=== PATIENT | female | born 1975 | race Two or more races ===

== ENCOUNTER 2024-10-21 14:01 | Outpatient (AMB) | payer OTHER, SELFPAY ==
--- NOTE | 2024-10-21 14:13 | MHC.PC.OV ---
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 Intake Note: patient is scheduled for a new patient visit to establish care Territory Account Manager Required: No Is last menstrual period known: Yes Last menstrual period: 09/15/24 Post menopausal: No Patient : No Allergies No Known Allergies Allergy (Verified 10/21/24 14:14) Medication List - Last Reconciled 10/21/24 by Josias Singleton MD cetirizine (Zyrtec) 10 mg PO DAILY PRN levothyroxine 10 mcg PO DAILY Tobacco use date assessed: 10/21/24 Dental Screening Dental Screen Date: 10/21/24 Did you have a dental visit in the last 12 months?: Yes Did you have a dental problem in the last 6 months where you did not have access to dental care?: No Was dental information given to patient?: No HPI 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 ?? Prior PCP:? [address] in [place] Last office visit/CPE:? 2-3 yrs Acute issue(s):? Needs thyroid hormone tabs ?? PMHx:? Hypothyroidism s/p ablation. GERD, SurgHx:?Hysterectomy - still has Ovaries. FHx:? Mom: Breast CA. Dad: CAD, [place]. SocHx:? Nonsmoker. EtOH 1-2 dr a month. No drugs PFSH Medical History (Updated 10/21/24 @ 14:45 by Oliver Whatley) Encounter for colonoscopy following colon polyp removal Peptic ulcer Thyroid disease Sinusitis Family History (Updated 10/21/24 @ 14:23 [facility] Mother High blood pressure High cholesterol Breast cancer Social History Patient : No Female Reproductive History Menstrual Date of last menstrual period: 09/15/24 Questionnaire PHQ-9 Over the last 2 weeks, how often have you been bothered by any of the following problems? 1. Little interest or pleasure in doing things: not at all 2. Feeling down, depressed, or hopeless: not at all 3. Trouble falling or staying asleep, or sleeping too much: several days 4. Feeling tired or having little energy: several days 5. Poor appetite or overeating: several days 6. Feeling bad about yourself - or that you are a failure or have let yourself or your family down: not at all 7. Trouble concentrating on things, such as reading the newspaper or watching television: several days 8. Moving or speaking so slowly that other people could have noticed. Or the opposite - being so fidgety or restless that you have been moving around a lot more than usual: several days 9. Thoughts that you would be better off or of hurting yourself in some way: not at all Total score: 5 Depression Screening Interpretation: Negative Depression Screening Done: Yes 38704 - PHQ-9 Billing: Yes Source: Developed by Drs. Yasir Edwards, Jammie Gao, Zay Chong and colleagues, with an educational brandon from [employer]. Thrive Questionnaire Date Thrive assessed: 10/21/24 I am a: Patient What is your living situation today?: I have a steady place to live Within the past 12 months, did the food you bought not last and you didn't have the money to get more?: Sometimes True Within the past 12 months, did you worry whether your food would run out before you got money to buy more?: Sometimes True Do you have trouble paying for medicines?: No Do you have trouble getting transportation to medical appointments?: No Do you have trouble paying your heating and electricity bill?: No Do you have trouble taking care of your child, family member or friend?: No Do you have trouble with day-to-day activities such as bathing, preparing meals, shopping, managing finances, etc.?: No Are you currently unemployed and looking for a job?: No Are you interested in more education?: No Please select the resources that you would like help with: Food Currently or been in a relationship where the following occur: No concerns reported THRIVE Score: 2 AUDIT C Alcohol Use Questionnaire (AUDIT-C) 1. How often do you have a drink containing alcohol?: Monthly or less 2. How many drinks containing alcohol do you have on a typical day when you are drinking?: 1 or 2 3. How often do you have six or more drinks on one occasion?: Less than monthly Total Score: 2 JANETH-7 AMB Questionnaire JANETH-7 Date JANETH - 7 assessed: 10/21/24 Feeling nervous, anxious, or on edge: 1 = Several days Not being able to stop or control worryin = Not at all Worrying too much about different things: 1 = Several days Trouble relaxin = Several days Being so restless that it is hard to sit still: 1 = Several days Becoming easily annoyed or irritable: 1 = Several days Feeling afraid as if something awful might happen: 0 = Not at all Total JANETH-7 score (0-4 normal; 5-9 mild; 10-14 moderate; 15-21 severe): 5 Source: Developed by Drs. Yasir Edwards, Jammie Gao, Zay Chong and colleagues, with an educational brandon from [employer]. JANETH-7 Assessment Billing JANETH-7 Assessment Tool: JANETH-7 Assessment 11228 Review of Systems Const Denies chills, Denies fatigue, Denies fever(s), Denies headache(s) and Denies weakness ENT Denies dizziness and Denies headache(s) Card Denies chest pain, Denies lightheadedness, Denies dyspnea and Denies other (Palpitations) Resp Denies cough, Denies dyspnea, Denies wheezing and Denies other ( shortness of breath) Musc Denies numbness and Denies tingling Neuro Denies dizziness, Denies headache(s), Denies numbness, Denies tingling, Denies paresthesias and Denies weakness Psych Denies anxiety and Denies depression Endo Denies fatigue Aller/Immun Denies wheezing Physical exam (Primary Care) Tobacco/Smoking Status: Tobacco use Status Tobacco use date assessed 10/21/24 10/21/24 14:18 PHQ-9: PHQ-9 Score PHQ-9: Total score 5 10/21/24 14:18 Depression Screening Interpretation: Negative Currently or been in a relationship where the following occur: No concerns reported Const General: no acute distress and well developed Nutritional Appearance: well nourished Orientation/consciousness: patient oriented x3 HENMT Head: Yes normocephalic and Yes atraumatic Eyes General: appearance normal, both eyes and all related structures Pupils: Equal, round and reactive pupils present EOM: EOMs intact bilaterally Resp Effort & Inspection: normal respiratory effort Auscultation: clear to auscultation bilaterally Cardio Rate: regular rate Rhythm: regular rhythm Heart sounds: S1 normal heart sound present, S2 normal heart sound present, no gallops, no murmurs and no rubs Neuro General: patient oriented x3 and gait normal Cranial nerves: Yes Equal, round and reactive pupils present Psych Affect: normal affect Coding Level of Care Code New Pt Level 3 (88075) Diagnoses Hypothyroidism E03.9 Screening for tuberculosis Z11.1 Abdominal pain R10.9 GERD (gastroesophageal reflux disease) K21.9 Screening for colon cancer Z12.11 Breast cancer screening by mammogram Z12.31 Screening for cervical cancer Z12.4 Laboratory exam ordered as part of routine general medical examination Z00.00 Additional Codes PHQ-9 - 61847 - PHQ-9 Billing: Yes ([id number]) JANETH-7 Assessment Billing - JANETH-7 Assessment Tool: JANETH-7 Assessment 58759 ([id number]) Assessment & Plan Assessment & Plan (1) Hypothyroidism: Code(s): E03.9 - Hypothyroidism, unspecified Category: Medical Plan: Check?thyroid?hormone?levels Continue?levothyroxine?as?prescribed Will?call?patient?if?adjustments?needed. (2) Screening for tuberculosis: Code(s): Z11.1 - Encounter for screening for respiratory tuberculosis Category: Medical Plan: Patient?is?a?home?health?aide?and?needs?screening?for?tuberculosis Ordered?T?spot (3) Abdominal pain: Code(s): R10.9 - Unspecified abdominal pain Category: Medical Plan: Mild?abdominal?discomfort?and?GERD?intermittently She?uses?omeprazole?OTC Referred?to?GI?for?abdominal?discomfort,?GERD?and?screening?for?colon?cancer?as?she?is?overdue. (4) GERD (gastroesophageal reflux disease): Code(s): K21.9 - Gastro-esophageal reflux disease without esophagitis Category: Medical Plan: As?above (5) Screening for colon cancer: Code(s): Z12.11 - Encounter for screening for malignant neoplasm of colon Category: Medical Plan: Patient?has?never?had?a?colonoscopy Referred?to?Gastroenterology (6) Breast cancer screening by mammogram: Code(s): Z12.31 - Encounter for screening mammogram for malignant neoplasm of breast Category: Medical Plan: Patient?says?her?last?mammogram?was?2?years?ago Due?for?mammogram Ordered (7) Screening for cervical cancer: Code(s): Z12.4 - Encounter for screening for malignant neoplasm of cervix Category: Medical Plan: Followed?by [facility]/worsened?Women's?home health caregiver She?says?her?last?Pap?smear?was?about?2?years?ago Follow-up?with?home health caregiver?as?recommended (8) Laboratory exam ordered as part of routine general medical examination: Code(s): Z00.00 - Encounter for general adult medical examination without abnormal findings Category: Medical Plan Check?labs Orders: Orders Lipid Panel Today Z00.00 - Encounter for general adult medical examination without abnormal findings Microalbumin, Random (w Creat) Today I10 - Essential (primary) hypertension Free T4 (Free Thyroxine) Today E03.9 - Hypothyroidism, unspecified Thyroid Stimulating Hormone Today E03.9 - Hypothyroidism, unspecified Triiodothyronine T3 Total Today E03.9 - Hypothyroidism, unspecified T Spot TB Today Z11.1 - Encounter for screening for respiratory tuberculosis MM tomosynthesis screening BI Today Z12.31 - Encounter for screening mammogram for malignant neoplasm of breast Comprehensive [place]. Panel Fast Today Z00.00 - Encounter for general adult medical examination without abnormal findings Complete Blood Count Auto Diff Today Z00.00 - Encounter for general adult medical examination without abnormal findings UA and rflx microscopic Today Z00.00 - Encounter for general adult medical examination without abnormal findings Referrals Gastroenterology Referral K21.9 - Gastro-esophageal reflux disease without esophagitis, R10.9 - Unspecified abdominal pain, Z12.11 - Encounter for screening for malignant neoplasm of colon
[2024-10-21 14:24] VITALS: BP 110/70; PULSE 67; RESP 12; TEMP 37.2; O2SAT 97; BMI 26.9
== END 2024-10-21 14:47 | disposition home or self-care (01) ==
LOC: HO.HMCFM 14:02
PROVIDERS: PCP Family Medicine; Visit Provider Family Medicine
DX: E03.9 Hypothyroidism, unspecified (principal); Z11.1 Encounter for screening for respiratory tuberculosis; R10.9 Unspecified abdominal pain; K21.9 Gastro-esophageal reflux disease without esophagitis; Z12.11 Encounter for screening for malignant neoplasm of colon; Z12.31 Encounter for screening mammogram for malignant neoplasm of breast; Z12.4 Encounter for screening for malignant neoplasm of cervix; Z00.00 Encounter for general adult medical examination without abnormal findings

== ENCOUNTER → 2024-10-21 14:01 | Outpatient (BNVA) | payer OTHER, SELFPAY | PROVIDERS: PCP Family Medicine; Visit Provider Family Medicine | DX: Z00.00 Encounter for general adult medical examination without abnormal findings (principal); E03.9 Hypothyroidism, unspecified; R10.9 Unspecified abdominal pain; K21.9 Gastro-esophageal reflux disease without esophagitis | CPT/HCPCS: 96127; 99202 ==

== ENCOUNTER 2024-10-22 08:13 | Outpatient (REF) | payer SELFPAY ==
[2024-10-22 11:17] LABS: MANUAL DIFF FLAG NO
[2024-10-22 11:32] LABS: Basophils Percent Auto 0.7 % (0-2); Eosinophils Absolute Auto 0.2 X10*3/uL (0.0-0.4); Eosinophils Percent Auto 3.5 % (0-4); Hematocrit 33.2 % (37.0-47.0); Hemoglobin 10.4 g/dl (12.0-16.0); Imm Gran Abs Auto 0.02 X10*3/uL (0.00-0.03); Imm Gran Pct Auto 0.3 % (0.0-0.4); Lymphocytes Absolute Auto 1.5 X10*3/uL (1.2-4.9); Lymphocytes Percent Auto 25.3 % (20-40); Mean Corpuscular HGB Conc 31.3 g/dl (31.0-35.0); Mean Corpuscular Hemoglobin 25.7 pg (27.0-33.0); Mean Platelet Volume 9.7 fL (9.4-12.3); Monocytes Absolute Auto 0.4 X10*3/uL (0.1-1.2); Monocytes Percent Auto 6.4 % (2-11); Neutrophils Absolute Auto 3.7 x10*3/uL (2.0-8.3); Neutrophils Percent Auto 63.8 % (45-73); Platelet Count 281 X10*3/uL (160-400); Red Blood Count 4.05 X10*6/uL (4.20-5.50); White Blood Count 5.8 X10*3/uL (4.8-10.8)
[2024-10-22 12:18] LABS: Alanine Aminotransferase 17 U/L (0-31); Albumin Level 4.1 g/dL (3.5-5.0); Alkaline Phosphatase 51 U/L (39-117); Anion Gap 9 (12-20); Aspartate Amino Transferase 24 U/L (5-31); Bilirubin Total 0.3 mg/dL (0.0-1.0); Blood Urea Nitrogen 13 mg/dL (9-16); Carbon Dioxide 28 mmol/L (22-29); Chloride 105 mmol/L (96-108); Cholesterol 214 mg/dL (<200); Estimated Glomerular Filt Rate > 60; Glucose Fasting 84 mg/dL (60-99); HDL Cholesterol 66 mg/dL (>40); LDL Cholesterol Calculated 136 mg/dL (<100); Sodium 138 mmol/L (135-145); Total Protein 7.5 g/dL (6.5-8.0); Triglycerides 63 mg/dL (<150)
[2024-10-22 12:20] LABS: Free T4 (Free Thyroxine) 0.47 ng/dL (0.71-1.85); Thyroid Stimulating Hormone 19.54 uIU/mL (0.32-4.0)
[2024-10-22 14:13] LABS: Appearance Urine Clear; Color Urine Yellow; Glucose Urine UA Negative (Negative); Leukocyte Esterase Urine Negative (Negative); Nitrite Urine Negative (Negative); PH 6.5 (5.0-9.0); Urine Blood Negative (Negative); Urine Ketones Negative (Negative); Urine Protein Negative (Neg-Trace)
[2024-10-22 15:02] LABS: Creatinine Urine 184.93 mg/dL; Microalbum/Creatinine Ratio Ur 5.9 ug/mg cr (<30)
[2024-10-23 05:59] LABS: Triiodothyronine T3 Total 50 ng/dL (76-181)
[2024-10-25 19:19] LABS: TS Negative Control Passed; TS Panel A 0; TS Panel B 0; TS Positive Control Passed; TSpotTB Negative (Negative)
== END 2024-10-22 08:14 | disposition home or self-care (01) ==
LOC: HO.WFDLDS 08:13
PROVIDERS: Visit Provider Family Medicine
DX: Z00.00 Encounter for general adult medical examination without abnormal findings (principal); Z11.1 Encounter for screening for respiratory tuberculosis; E03.9 Hypothyroidism, unspecified; I10 Essential (primary) hypertension
CPT/HCPCS: 36415; 80053; 80061; 81003; 82043; 82570; 84439; 84443; 84480; 85025; 86481

== ENCOUNTER 2024-11-23 07:43 | Outpatient (REF) | payer SELFPAY ==
[2024-11-23 12:15] LABS: Free T4 (Free Thyroxine) 0.87 ng/dL (0.71-1.85); Thyroid Stimulating Hormone 18.41 uIU/mL (0.32-4.0)
[2024-11-24 09:54] LABS: Triiodothyronine T3 Total 63 ng/dL (76-181)
== END 2024-11-23 07:44 | disposition home or self-care (01) ==
LOC: HO.WFDLDS 07:43
PROVIDERS: Visit Provider Family Medicine
DX: E03.9 Hypothyroidism, unspecified (principal)
CPT/HCPCS: 36415; 84439; 84443; 84480

== ENCOUNTER 2024-11-29 09:43 | Outpatient (AMB) | payer OTHER, SELFPAY ==
[2024-11-29 10:03] VITALS: BP 143/70; PULSE 64; RESP 16; TEMP 36.6; O2SAT 100; BMI 27.3
--- NOTE | 2024-11-29 10:03 | A.OFFPC_ITS ---
Vital Signs 11/29/24 10:03 11/29/24 10:07 Height 5 ft 2 in Weight 149 lb 6 oz BMI 27.3 BP 143/70 H 140/80 H Blood Pressure Location Lt brachial Rt brachial Position Sitting Sitting Respiration 16 Pulse 64 Pulse Source Pulse Oximeter Temp 97.8 F Temp Source Oral Pulse Oximetry (%) 100 Oxygen Delivery Method Room Air Intake Visit Reasons: f/u labs Allergies No Known Allergies Allergy (Verified 10/21/24 14:14) Tobacco use date assessed: 10/21/24 Dental Screening Dental Screen Date: 10/21/24 HPI f/u labs HPI Details 49 y/o female presents to f/u labs, hypo thyroidism. Labs drawn 10/22/24. Reviewed labs with pt. Anemia. Denies any bleeding. She notes she still has her periods. Triglycerides 63. TC 214. LDL 136. HDL 66. TSH 19.54. Repeat check 11/23/24 18.41 uIU/mL. Pt reports abd. discomfort which improves with bowel movement. 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 Current occupational exposures/hazards: Yes Cognitive needs: No Hearing needs: No Vision needs: No Questionnaire Thrive Questionnaire Date Thrive assessed: 10/21/24 I am a: Patient What is your living situation today?: I have a steady place to live Within the past 12 months, did the food you bought not last and you didn't have the money to get more?: Sometimes True Within the past 12 months, did you worry whether your food would run out before you got money to buy more?: Sometimes True Do you have trouble paying for medicines?: No Do you have trouble getting transportation to medical appointments?: No Do you have trouble paying your heating and electricity bill?: No Do you have trouble taking care of your child, family member or friend?: No Do you have trouble with day-to-day activities such as bathing, preparing meals, shopping, managing finances, etc.?: No Are you currently unemployed and looking for a job?: No Are you interested in more education?: No Please select the resources that you would like help with: Food Currently or been in a relationship where the following occur: No concerns reported THRIVE Score: 2 JANETH-7 AMB Questionnaire JANETH-7 Date JANETH - 7 assessed: 10/21/24 Source: Developed by Drs. Yasir Edwards, Jammie Gao, Zay Chong and colleagues, with an educational brandon from [employer]. Review of Systems Const Denies chills, Denies fatigue, Denies fever(s), Denies headache(s) and Denies weakness ENT Denies dizziness and Denies headache(s) Card Denies dyspnea Resp Denies cough, Denies dyspnea, Denies wheezing and Denies other (shortness of breath) Musc Denies numbness and Denies tingling Neuro Denies dizziness, Denies headache(s), Denies numbness, Denies tingling and Denies weakness Psych Denies anxiety and Denies depression Endo Denies fatigue Aller/Immun Denies wheezing Physical exam (Primary Care) Vital Signs: Last Vital Signs Temp 97.8 F 11/29/24 10:03 Pulse 64 11/29/24 10:03 Resp 16 11/29/24 10:03 BP 140/80 H 11/29/24 10:07 Pulse Ox 100 11/29/24 10:03 Oxygen Delivery Method Room Air 11/29/24 10:03 BMI result Body Mass Index 27.3 Tobacco/Smoking Status: Tobacco use Status Tobacco use date assessed 10/21/24 11/29/24 10:06 Patient Tobacco Use Status Never used Tobacco 11/29/24 10:06 e-Cigarette/Vaping Use Never Used 11/29/24 10:06 Thrive Assessment: Date of Thrive Assessment Date Thrive assessed 10/21/24 11/29/24 10:06 Currently or been in a relationship where the following occur: No concerns r eported Const General: well developed; No acute distress Nutritional Appearance: well nourished Orientation/consciousness: patient oriented x3 HENMT Head: Yes normocephalic and Yes atraumatic Eyes General: appearance normal, both eyes and all related structures Pupils: Equal, round and reactive pupils present EOM: EOMs intact bilaterally Resp Effort & Inspection: normal respiratory effort Auscultation: clear to auscultation bilaterally Cardio Rate: regular rate Rhythm: regular rhythm Heart sounds: S1 normal heart sound present, S2 normal heart sound present, no gallops, no murmurs and no rubs Neuro General: patient oriented x3 and gait normal Cranial nerves: Yes Equal, round and reactive pupils present Psych Affect: normal affect Coding Level of Care Code Est Pt Level 4 (30567) Diagnoses Hypothyroidism E03.9 Elevated LDL cholesterol level E78.00 Anemia D64.9 Abdominal pain R10.9 Assessment & Plan Assessment & Plan (1) Hypothyroidism: Code(s): E03.9 - Hypothyroidism, unspecified Category: Medical Plan: Thyroid?hormone?levels?show?that she?is?currently?in?hypothyroid?state Prior prescription?was?for?10?mcg?daily?and?is?unclear?if?she?was?getting?this. Sending?a?script?for?levo thyroxine?25?mg?daily.??She?will?take?this?consistently?and?we?will?recheck?in?a bout?2?months. Will?adjust?medication?as?needed (2) Elevated LDL cholesterol level: Code(s): E78.00 - Pure hypercholesterolemia, unspecified Category: Medical Plan: Encouraged?a?diet?lower?in?saturated?fats?and?cholesterol Will?recheck?with?next?blood?draw (3) Anemia: Code(s): D64.9 - Anemia, unspecified Category: Medical Plan: Mild/moderate?anemia. Patient?is?still?menstruates?and?notes?that?she?sometimes?has?fa irly?heavy?periods. This?may?be?improved?with?repeat?lab?draw?but?will?also?check?iron?levels?and?li jabier?any?underlying?causes?besides?heavy?periods. (4) Abdominal pain: Code(s): R10.9 - Unspecified abdominal pain Category: Medical Plan: Patient?notes?bloating She?is?apparently?only?drinking?about?12-15?oz?of?water?per?day. Advised?her?to?increase?this?significantly.??She?should?she?for?a?goal?of?64?oz? of?water?per?day She?will?let?me?know?if?sh e?is?still?having?problems?when?she?has?increase?water?significantly. Orders: Orders Complete Blood Count Auto Diff Today D64.9 - Anemia, unspecified, Z00.00 - Encounter for general adult medical examination without abnormal findings IRON PROFILE Today D64.9 - Anemia, unspecified Reticulocyte Count Today D64.9 - Anemia, unspecified Free T4 (Free Thyroxine) Today E03.9 - Hypothyroidism, unspecified Triiodothyronine T3 Total Today E03.9 - Hypothyroidism, unspecified Lipid Panel Today E78.00 - Pure hypercholesterolemia, unspecified, Z00.00 - Encounter for general adult medical examination without abnormal findings Comprehensive [place]. Panel Fast Today E78.00 - Pure hypercholesterolemia, unspecified, Z00.00 - Encounter for general adult medical examination without abnormal findings Thyroid Stimulating Hormone Today E03.9 - Hypothyroidism, unspecified Medications: New levothyroxine 25 mcg PO DAILY 90 days 90 tabs 3RF
[2024-11-29 10:07] VITALS: BP 140/80
== END 2024-11-29 10:33 | disposition home or self-care (01) ==
LOC: HO.HMCFM 09:44
PROVIDERS: PCP Family Medicine; Visit Provider Family Medicine
DX: E03.9 Hypothyroidism, unspecified (principal); E78.00 Pure hypercholesterolemia, unspecified; D64.9 Anemia, unspecified; R10.9 Unspecified abdominal pain

== ENCOUNTER → 2024-11-29 09:43 | Outpatient (BNVA) | payer OTHER, SELFPAY | PROVIDERS: PCP Family Medicine; Visit Provider Family Medicine | DX: E03.9 Hypothyroidism, unspecified (principal); E78.00 Pure hypercholesterolemia, unspecified; D64.9 Anemia, unspecified; R10.9 Unspecified abdominal pain | CPT/HCPCS: 99212 ==

== ENCOUNTER 2024-12-16 10:48 | Outpatient (REF) | payer OTHER, SELFPAY | END 2024-12-16 10:49 | disposition home or self-care (01) | LOC: HO.MAMMO 10:48 | PROVIDERS: PCP Family Medicine; Visit Provider Family Medicine | DX: Z12.31 Encounter for screening mammogram for malignant neoplasm of breast (principal) | CPT/HCPCS: 77063; 77067 ==

== ENCOUNTER → 2024-12-16 11:45 | Outpatient (BNV) | payer OTHER, SELFPAY | PROVIDERS: PCP Family Medicine; Visit Provider Internal Medicine | DX: Z12.31 Encounter for screening mammogram for malignant neoplasm of breast (principal) | CPT/HCPCS: 77063; 77067 ==

== ENCOUNTER 2025-02-05 07:17 | Outpatient (REF) | payer OTHER, SELFPAY ==
[2025-02-05 07:39] LABS: MANUAL DIFF FLAG NO
[2025-02-05 08:07] LABS: Hematocrit 36.0 % (37.0-47.0); Hemoglobin 11.5 g/dl (12.0-16.0); Imm Gran Abs Auto 0.02 X10*3/uL (0.00-0.03); Imm Gran Pct Auto 0.4 % (0.0-0.4); Lymphocytes Absolute Auto 1.3 X10*3/uL (1.2-4.9); Mean Corpuscular HGB Conc 31.9 g/dl (31.0-35.0); Mean Corpuscular Hemoglobin 25.7 pg (27.0-33.0); Mean Corpuscular Volume 80.5 fL (80.0-98.0); NRBC Abs Auto 0.000 X10*3/uL (0.0-0.012); NRBC Pct Auto 0.0 /100WBC (0.0-0.2); Platelet Count 234 X10*3/uL (160-400); Red Blood Count 4.47 X10*6/uL (4.20-5.50); Reticulocytes Absolute 0.044 X10*6/uL (0.026-0.095); White Blood Count 4.8 X10*3/uL (4.8-10.8)
[2025-02-05 08:36] LABS: Alanine Aminotransferase 30 U/L (0-31); Albumin Level 4.5 g/dL (3.5-5.0); Alkaline Phosphatase 47 U/L (39-117); Anion Gap 11 (12-20); Aspartate Amino Transferase 34 U/L (5-31); Blood Urea Nitrogen 17 mg/dL (9-16); Calcium 9.2 mg/dL (8.4-10.2); Carbon Dioxide 28 mmol/L (22-29); Chloride 104 mmol/L (96-108); Cholesterol 239 mg/dL (<200); Estimated Glomerular Filt Rate 45; HDL Cholesterol 72 mg/dL (>40); Iron 55 mcg/dL (30-160); Percent Iron Saturation 15 % (15-50); Potassium 3.8 mmol/L (3.3-5.1); Sodium 139 mmol/L (135-145); Total Iron Binding Capacity 368 mcg/dL (228-428); Total Protein 8.1 g/dL (6.5-8.0); Triglycerides 57 mg/dL (<150); Unsaturated Iron Binding 313 ug/dL
[2025-02-05 09:13] LABS: Free T4 (Free Thyroxine) 0.46 ng/dL (0.71-1.85); Thyroid Stimulating Hormone 24.33 uIU/mL (0.32-4.0)
== END 2025-02-05 07:18 | disposition home or self-care (01) ==
LOC: HO.LAB 07:17
PROVIDERS: PCP Family Medicine; Visit Provider Family Medicine
DX: Z00.00 Encounter for general adult medical examination without abnormal findings (principal); D64.9 Anemia, unspecified; E03.9 Hypothyroidism, unspecified; E78.00 Pure hypercholesterolemia, unspecified
CPT/HCPCS: 36415; 80053; 80061; 83540; 84439; 84443; 84480; 85025; 85045

== ENCOUNTER 2025-02-10 15:03 | Outpatient (AMB) | payer OTHER, SELFPAY ==
--- NOTE | 2025-02-10 15:55 | MHC.PC.OV ---
Vital Signs 02/10/25 16:02 Height 5 ft 2 in Weight 147 lb 4 oz BMI 26.9 BP 130/70 Blood Pressure Location Lt brachial Position Sitting Respiration 12 Pulse 62 Pulse Source Pulse Oximeter Temp 98.4 F Temp Source Oral Pulse Oximetry (%) 98 Oxygen Delivery Method Room Air Intake Visit Reasons: CPE with f/u labs and health maint. 30 mins Manager Part Required: No Is last menstrual period known: Yes Last menstrual period: 01/17/25 Post menopausal: No Patient : No Allergies No Known Allergies Allergy (Verified 02/10/25 16:00) Medication List - Last Reconciled 02/10/25 by Josias Singleton MD cetirizine (Zyrtec) 10 mg PO DAILY PRN levothyroxine 25 mcg PO DAILY 90 days levothyroxine 25 mcg PO DAILY 90 days omeprazole 20 mg PO DAILY 30 days Tobacco use date assessed: 10/21/24 Dental Screening Dental Screen Date: 10/21/24 HPI CPE with f/u labs and health maint. 30 mins HPI Details 49 y/o female presents for a CPE with f/u labs and health maint. Labs drawn 02/05/25. Reviewed labs with pt. Mild anemia. AST 34. ALT 30. Triglycerides 57. TC 239. LDL 156. HDL 72. TSH 24.33 uIU/mL. She is on levothyroxine. Free T4 0.46. Total T3 low at 31. Has complaints of a rash. HPI Comments History of Present Illness Details Documentation assistance for Josias Singleton MD, was provided by Oliver Whatley, Cyber Systems Engineer on 02/10/2025 at 4:22 PM EST. I, Dr. Singleton, have read, observed, and verified documentation. 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 1. Little interest or pleasure in doing things: not at all 2. Feeling down, depressed, or hopeless: not at all 3. Trouble falling or staying asleep, or sleeping too much: not at all 4. Feeling tired or having little energy: more than half the days 5. Poor appetite or overeating: not at all 6. Feeling bad about yourself - or that you are a failure or have let yourself or your family down: not at all 7. Trouble concentrating on things, such as reading the newspaper or watching television: several days 8. Moving or speaking so slowly that other people could have noticed. Or the opposite - being so fidgety or restless that you have been moving around a lot more than usual: not at all 9. Thoughts that you would be better off or of hurting yourself in some way: not at all Total score: 3 Depression Screening Interpretation: Negative Depression Screening Done: Yes 18300 - PHQ-9 Billing: Yes Source: Developed by Drs. Yasir Edwards, Jammie Gao, Zay Chong and colleagues, with an educational brandon from [employer]. Thrive Questionnaire Date Thrive assessed: 10/21/24 I am a: Patient What is your living situation today?: I have a steady place to live Within the past 12 months, did the food you bought not last and you didn't have the money to get more?: Sometimes True Within the past 12 months, did you worry whether your food would run out before you got money to buy more?: Sometimes True Do you have trouble paying for medicines?: No Do you have trouble getting transportation to medical appointments?: No Do you have trouble paying your heating and electricity bill?: No Do you have trouble taking care of your child, family member or friend?: No Do you have trouble with day-to-day activities such as bathing, preparing meals, shopping, managing finances, etc.?: No Are you currently unemployed and looking for a job?: No Are you interested in more education?: No Please select the resources that you would like help with: Food Currently or been in a relationship where the following occur: No concerns reported THRIVE Score: 2 JANETH-7 AMB Questionnaire JANETH-7 Date JANETH - 7 assessed: 02/10/25 Feeling nervous, anxious, or on edge: 0 = Not at all Not being able to stop or control worryin = Not at all Worrying too much about different things: 0 = Not at all Trouble relaxin = Not at all Being so restless that it is hard to sit still: 0 = Not at all Becoming easily annoyed or irritable: 0 = Not at all Feeling afraid as if something awful might happen: 0 = Not at all Total JANETH-7 score (0-4 normal; 5-9 mild; 10-14 moderate; 15-21 severe): 0 Source: Developed by Drs. Yasir Edwards, Jammie Gao, Zay Chong and colleagues, with an educational brandon from [employer]. JANETH-7 Assessment Billing JANETH-7 Assessment Tool: JANETH-7 Assessment 98272 Review of Systems Const Denies chills, Denies fatigue, Denies fever(s), Denies headache(s) and Denies weakness Eyes Denies change in vision ENT Denies dizziness, Denies headache(s), Denies hearing loss, Denies nasal congestion, Denies sinus pain, Denies sinus pressure and Denies sore throat Card Denies chest pain, Denies lightheadedness, Denies dyspnea and Denies other (palpitations) Resp Denies cough, Denies dyspnea and Denies wheezing GI Denies abdominal pain, Denies melena, Denies hematochezia, Denies change in bowel habits, Denies dyspepsia and Denies nausea Denies hematuria and Denies dysuria Musc Denies abnormal gait, Denies myalgias, Denies arthralgias, Denies numbness and Denies tingling Skin/Breast Reports rash, Denies unusual bruising and Denies wounds Neuro Denies abnormal gait, Denies dizziness, Denies headache(s), Denies memory loss, Denies numbness, Denies Sensory deficit (Neuro), Denies tingling and Denies weakness Psych Denies anxiety, Denies depression and Denies memory loss Endo Denies cold intolerance, Denies fatigue, Denies heat intolerance, Denies polydipsia and Denies polyuria Raymond/Lymph Denies easy bleeding and Denies easy bruising Aller/Immun Denies wheezing Physical exam (Primary Care) Vital Signs: Last Vital Signs Temp 98.4 F 02/10/25 16:02 Pulse 62 02/10/25 16:02 Resp 12 02/10/25 16:02 BP 130/70 02/10/25 16:02 Pulse Ox 98 02/10/25 16:02 Oxygen Delivery Method Room Air 02/10/25 16:02 BMI result Body Mass Index 26.9 Tobacco/Smoking Status: Tobacco use Status Tobacco use date assessed 10/21/24 02/10/25 15:56 Patient Tobacco Use Status Never used Tobacco 02/10/25 15:56 e-Cigarette/Vaping Use Never Used 02/10/25 15:56 PHQ-9: PHQ-9 Score PHQ-9: Total score 3 02/10/25 16:22 Depression Screening Interpretation: Negative Thrive Assessment: Date of Thrive Assessment Date Thrive assessed 10/21/24 02/10/25 15:56 Currently or been in a relationship where the following occur: No concerns reported Const General: no acute distress, well developed, alert and awake Nutritional Appearance: well nourished Orientation/consciousness: patient oriented x3 HENMT Head: Yes normocephalic and Yes atraumatic Ears: hearing grossly normal bilaterally and TM's normal bilaterally General nose exam: Normal external nose present and Normal nares present Mouth: Normal oral and palatal mucosa present and moist mucous membranes Teeth and gingiva: dentition normal Throat: Yes posterior oropharynx normal Eyes General: appearance normal, both eyes and all related structures Pupils: Equal, round and reactive pupils present and Pupil accommodation reflex normal EOM: EOMs intact bilaterally Neck Neck: Yes normal visual inspection, Yes no lymphadenopathy and Yes trachea midline Thyroid: Thyroid normal Carotids: no bruits Lymphatic: no lymphadenopathy noted Chest Chest palpation & inspection: normal inspection of the chest Resp Effort & Inspection: normal respiratory effort Auscultation: clear to auscultation bilaterally Cardio Rate: regular rate Rhythm: regular rhythm Heart sounds: S1 normal heart sound present, S2 normal heart sound present, no gallops, no murmurs and no rubs Bruits: no abdominal aortic bruits and no carotid bruits GI Palpation (GI): No Abdominal aortic bruit present, Soft to palpation, nontender, No hepatosplenomegaly present and No Rebound tenderness present Auscultation: normal bowel sounds General: Yes no CVA tenderness Back/Spine/Pelvis Back: no CVA tenderness Cervical Spine: cervical ROM normal and No Cervical spine tenderness Thoracic/Lumbar Spine: thoraco-lumbar ROM normal, No pain with thoraco-lumbar ROM, No thoracic spinal tenderness and No lumbar spinal tenderness Skin Lesions: no lesions Rashes: no rashes Trauma: no lacerations or abrasions Wounds: no wounds Nails: normal Neuro General: patient oriented x3 Cranial nerves: Yes Equal, round and reactive pupils present Cognition (Neuro): normal cognition Gait exam (Neuro): Normal gait present Motor exam (neuro): 5/5 motor strength present throughout Sensory Exam: No Sensory deficit (Neuro) Deep tendon reflexes (DTR's): Right patellar reflex intensity grade: 2+ and Left patellar reflex intensity grade: 2+ Extrem General: Yes normal to inspection and No edema Psych Appearance: grossly normal Affect: normal affect Attitude: cooperative Thought process: Normal thought process present Coding Level of Care Code Est Pt Level 4 (40604) Est Pt Prev Care 40-64y(33396) Diagnoses Adult general medical exam Z00.00 Hypothyroidism E03.9 Anemia D64.9 Elevated AST (SGOT) R74.01 Elevated LDL cholesterol level E78.00 Breast cancer screening by mammogram Z12.31 Screening for colon cancer Z12.11 Screening for cervical cancer Z12.4 Rash R21 Keloid L91.0 Additional Codes JANETH-7 Assessment Billing - JANETH-7 Assessment Tool: JANETH-7 Assessment 70231 ([id number]) PHQ-9 - 86846 - PHQ-9 Billing: Yes ([id number]) Assessment & Plan Assessment & Plan (1) Adult general medical exam: Code(s): Z00.00 - Encounter for general adult medical examination without abnormal findings Category: Medical Plan: 49-year-old female presents for complete physical exam Exam within normal limits except as described below. EKG shows sinus bradycardia, 55 beats per minute, otherwise normal EKG. (2) Hypothyroidism: Code(s): E03.9 - Hypothyroidism, unspecified Category: Medical Plan: Ongoing hypothyroid state despite levothyroxine. Patient says she is taking medication as prescribed. Will increase this Also diffusely enlarged gland. Checking ultrasound. Rechecking thyroid hormone levels in 2 months. Will review with patient (3) Anemia: Code(s): D64.9 - Anemia, unspecified Category: Medical Plan: Improving Will recheck with next blood draw (4) Elevated AST (SGOT): Code(s): R74.01 - Elevation of levels of liver transaminase levels Category: Medical Plan: Mildly elevated AST Hydrate well Will recheck with next blood draw (5) Elevated LDL cholesterol level: Code(s): E78.00 - Pure hypercholesterolemia, unspecified Category: Medical Plan: LDL cholesterol is too high. Starting atorvastatin Will recheck prior to next visit and review with patient (6) Breast cancer screening by mammogram: Code(s): Z12.31 - Encounter for screening mammogram for malignant neoplasm of breast Category: Medical Plan: Patient's mammogram was in November No evidence of malignancy and recommended annual screening. Up-to-date (7) Screening for colon cancer: Code(s): Z12.11 - Encounter for screening for malignant neoplasm of colon Category: Medical Plan: Due for 1st screening colonoscopy Referred to GI (8) Screening for cervical cancer: Code(s): Z12.4 - Encounter for screening for malignant neoplasm of cervix Category: Medical Plan: Patient thinks her last Pap smear was about 4 years ago. She would like a new water/wastewater engineer referral Referred to [facility] for screening for cervical cancer. (9) Rash: Code(s): R21 - Rash and other nonspecific skin eruption Category: Medical (10) Keloid: Code(s): L91.0 - Hypertrophic scar Category: Medical Plan Patient has complaints of rash on wrist and forearm with some keloid scarring. Also dermatitis rash on shins. She can try a small amount of steroid cream on her rash on her forearms - cautioned her regarding changes in skin tone. Referred to Dermatology Orders: Orders Free T4 (Free Thyroxine) Today E03.9 - Hypothyroidism, unspecified Thyroid Stimulating Hormone Today E03.9 - Hypothyroidism, unspecified Triiodothyronine T3 Total Today E03.9 - Hypothyroidism, unspecified Lipid Panel Today E78.00 - Pure hypercholesterolemia, unspecified, Z00.00 - Encounter for general adult medical examination without abnormal findings US thyroid Today E01.0 - Iodine-deficiency related diffuse (endemic) goiter Comprehensive [place]. Panel Fast Today R74.01 - Elevation of levels of liver transaminase levels, Z00.00 - Encounter for general adult medical examination without abnormal findings Complete Blood Count Auto Diff Today D64.9 - Anemia, unspecified, Z00.00 - Encounter for general adult medical examination without abnormal findings AMB EKG-In Office Today Z00.00 - Encounter for general adult medical examination without abnormal findings Referrals Gastroenterology Referral Z12.11 - Encounter for screening for malignant neoplasm of colon CHARTER BUS DRIVER Referral Z12.4 - Encounter for screening for malignant neoplasm of cervix Dermatology Referral L91.0 - Hypertrophic scar, R21 - Rash and other nonspecific skin eruption Medications: New levothyroxine (Levoxyl) 37.5 mcg (1.5 x 25 mcg) PO DAILY 135 tabs 3RF 90 days atorvastatin (Lipitor) 20 mg PO BEDTIME 90 tabs 2RF 90 days betamethasone dipropionate 0.05% 1 appl topical BID PRN 30 grams 0RF skin irritation 14 days Discontinued levothyroxine Discontinued Reason: Doctor's Order 25 mcg PO DAILY 90 days 90 tabs 3RF levothyroxine Discontinued Reason: Doctor's Order 25 mcg PO DAILY 90 days 90 caps 2RF
[2025-02-10 16:02] VITALS: BP 130/70; PULSE 62; RESP 12; TEMP 36.9; O2SAT 98; BMI 26.9
== END 2025-02-10 17:13 | disposition home or self-care (01) ==
LOC: HO.HMCFM 15:04
PROVIDERS: PCP Family Medicine; Visit Provider Family Medicine
DX: Z00.00 Encounter for general adult medical examination without abnormal findings (principal); E03.9 Hypothyroidism, unspecified; D64.9 Anemia, unspecified; R74.01 Elevation of levels of liver transaminase levels; E78.00 Pure hypercholesterolemia, unspecified; Z12.31 Encounter for screening mammogram for malignant neoplasm of breast; Z12.11 Encounter for screening for malignant neoplasm of colon; R21 Rash and other nonspecific skin eruption; L91.0 Hypertrophic scar

== ENCOUNTER → 2025-02-10 15:03 | Outpatient (BNVA) | payer OTHER, SELFPAY | PROVIDERS: PCP Family Medicine; Visit Provider Family Medicine | DX: Z00.00 Encounter for general adult medical examination without abnormal findings (principal); E03.9 Hypothyroidism, unspecified; D64.9 Anemia, unspecified; R74.01 Elevation of levels of liver transaminase levels; E78.00 Pure hypercholesterolemia, unspecified; R21 Rash and other nonspecific skin eruption; L91.0 Hypertrophic scar | CPT/HCPCS: 96127; 99212; 99396 ==

== ENCOUNTER 2025-03-16 13:24 | Outpatient (AMB) | payer OTHER, SELFPAY ==
--- NOTE | 2025-03-16 13:26 | MHC.OFFVIS ---
Vital Signs 03/16/25 13:32 Height 5 ft 2 in Weight 150 lb BMI 27.4 BP 140/88 H Blood Pressure Location Rt brachial Position Sitting Pulse 68 Pulse Source Pulse Oximeter Pulse Oximetry (%) 98 Oxygen Delivery Method Room Air Intake Visit Reasons: [place] screening/GERD Intake Note: New pt for initial colo + sx eval (abd pain) CC; C.O. GERD which is currently being treated with 20 mg PPI which pt states is helpful but has not resolved her sx. No additional sx at this time. No FMHx. Administrative Assistant Required: No Accompanied by: Self / Same As Patient Allergies No Known Allergies Allergy (Verified 03/16/25 13:27) HPI HPI [place] screening/GERD: Details: 49 year old? female with past medical history of anemia, hypercholesteremia, GERD, hypothyroidism is here today for pre colonoscopy screening.? Patient was sent to us by her PCP.? This is her first colonoscopy screening.?? Denies any personal or family history of gastrointestinal disease, colon polyps, or CRC.? Denies history of difficulty with sedation or anesthesia in the past.? Negative for history of sleep apnea.? Denies any history of cardiac, renal, pulmonary, or hepatic disease.?? No history of infectious? diseases like hepatitis A, B, C, HIV or tuberculosis.? Patient is not on any anticoagulation. Patient reports epigastric pain and acid reflux with occasional dyspepsia after eating. Patient reports that when she was younger she believes she was told that she had ulcers. Recently patient was placed on omeprazole. Patient states that she feels like it is not helping her. Patient also reports abdominal bloating. Patient reports that she is moving her bowels without any issues. Patient denies dysphagia or odynophagia. 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 Current occupational exposures/hazards: Yes Cognitive needs: No Hearing needs: No Vision needs: No Review of Systems Const Denies weight gain and Denies weight loss ENT Reports no additional complaints, Denies dysphagia and Denies odynophagia Card Reports no additional complaints Resp Reports no additional complaints GI Reports abdominal pain (Epigastric), Denies belching, Denies melena, Reports bloating, Denies change in bowel habits, Denies dysphagia, Denies excessive flatus, Reports dyspepsia, Reports heartburn, Denies diarrhea, Denies loose stools, Denies nausea, Denies odynophagia and Denies vomiting Reports no additional complaints Musc Reports no additional complaints Neuro Reports no additional complaints Psych Reports no additional complaints Endo Reports no additional complaints Physical Exam Vital Signs: Last Vital Signs Pulse 68 03/16/25 13:32 BP 140/88 H 03/16/25 13:32 Pulse Ox 98 03/16/25 13:32 Oxygen Delivery Method Room Air 03/16/25 13:32 BMI result Body Mass Index 27.4 Const General: healthy appearing, no acute distress and well developed Nutritional Appearance: well nourished Orientation/consciousness: patient oriented x3 Resp Effort & Inspection: normal respiratory effort, able to speak in complete sentences, no tracheal deviation and symmetric chest movement Auscultation: clear to auscultation bilaterally Cardio Rate: regular rate GI Inspection: Yes normal to inspection and No distended Palpation (GI): Soft to palpation, not firm, nontender and No hepatosplenomegaly present Auscultation: normal bowel sounds General: Yes no CVA tenderness Back/Spine/Pelvis Back: no CVA tenderness Skin General skin exam: elasticity normal, turgor normal and dry skin Neuro General: patient oriented x3 Psych Appearance: grossly normal Mental Status: mental status grossly normal Assessment & Plan Assessment & Plan (1) GERD (gastroesophageal reflux disease): Code(s): K21.9 - Gastro-esophageal reflux disease without esophagitis Category: Medical Qualifiers: Esophagitis presence: esophagitis presence not specified Qualified Code(s): K21.9 - Gastro-esophageal reflux disease without esophagitis (2) Screening for colon cancer: Code(s): Z12.11 - Encounter for screening for malignant neoplasm of colon Category: Medical (3) Abdominal pain: Code(s): R10.9 - Unspecified abdominal pain Category: Medical Qualifiers: Abdominal location: epigastric Qualified Code(s): R10.13 - Epigastric pain (4) Postprandial epigastric pain: Code(s): R10.13 - Epigastric pain Plan Patient will return in 2 weeks for H pylori breath test. Patient will stop taking omeprazole and start famotidine. Patient will stop famotidine 24-48 hours before testing. Patient will be treated empirically if positive. Will check lipase, vitamin B12, folate, vitamin-D, transglutaminase. Patient will be sent for upper GI with barium swallow. Discussed with patient avoiding dietary triggers in late night snacking. Staying upright for minimum 3 hours after meals discussed with patient. Patient reports abdominal bloating. Patient will follow FODMAP diet. List of food recommended as well as list of food to avoid given to patient. Patient will return in our office in 2 months to discuss going for upper endoscopy and colonoscopy. Patient is agreeable to current plan of care and verbalizes understanding of instructions. She was given the opportunity to ask questions and all questions answered. Thank you for allowing me to participate in her care Orders: Orders H Pylori Breath Test Today K21.9 - Gastro-esophageal reflux disease without esophagitis Lipase Today R10.9 - Unspecified abdominal pain Vitamin B12 and Folate Today R19.7 - Diarrhea, unspecified Vitamin D 25-OH (D2 and D3) Today E55.9 - Vitamin D deficiency, unspecified [place] upper GI w Ba Swallow Today K21.9 - Gastro-esophageal reflux disease without esophagitis Transglutaminase IgA Today R10.9 - Unspecified abdominal pain Medications: New famotidine (Pepcid) 20 mg PO BID 30 tabs 0RF K29.70 - Gastritis, unspecified, without bleeding pantoprazole take one tablet half an hour before breakfast 40 mg PO DAILY 30 tabs 3RF K21.9 - Gastro-esophageal reflux disease without esophagitis Discontinued omeprazole Discontinued Reason: Doctor's Order 20 mg PO DAILY 30 days 30 caps 2RF Coding Level of Care Code New Pt Level 4 (06026) Diagnoses Gastroesophageal reflux disease, unspecified whether esophagitis present K21.9 Esophagitis presence: esophagitis presence not specified Screening for colon cancer Z12.11 Epigastric pain R10.13 Abdominal location: epigastric Postprandial epigastric pain R10.13 Time Spent (min) 45 Comment 35 minutes spent with patient and additional 10 minutes spent reviewing her records
[2025-03-16 13:32] VITALS: BP 140/88; PULSE 68; O2SAT 98; BMI 27.4
== END 2025-03-16 14:13 | disposition home or self-care (01) ==
LOC: HO.HGI 13:24
PROVIDERS: PCP Family Medicine; Visit Provider Nurse Practitioner Family
DX: K21.9 Gastro-esophageal reflux disease without esophagitis (principal); R10.13 Epigastric pain
CPT/HCPCS: 99204

== ENCOUNTER → 2025-03-16 13:24 | Outpatient (BNVA) | payer SELFPAY | PROVIDERS: PCP Family Medicine; Visit Provider Nurse Practitioner Family | DX: Z01.818 Encounter for other preprocedural examination (principal); K21.9 Gastro-esophageal reflux disease without esophagitis; R10.13 Epigastric pain | CPT/HCPCS: 99202 ==

== ENCOUNTER 2025-03-23 15:08 | Outpatient (REF) | payer OTHER, SELFPAY ==
--- NOTE | ~2025-03-23 | US_ITS ---
EXAMINATION: US THYROID 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 TECHNIQUE: Linear transducer grayscale and color Doppler examination with attention to the region of the thyroid. FINDINGS: SIZE: Measurements of the thyroid lobes and nodules are given in sagittal, anteroposterior and transverse dimensions respectively. Right Thyroid Lobe: 2.9 x 0.9 x 1.0 cm, volume 1.4 mL. Parenchyma: The gland echotexture is normal. Thyroid vascularity is increased. Left Thyroid Lobe: 2.8 x 0.5 x 0.9 cm, volume 0.7 mL. Parenchyma: The gland echotexture is normal. Thyroid vascularity is increased. Isthmus: 0.2 cm in maximum AP dimension. Estimated total number of nodules greater than or equal to 1 cm: 0. Film Technician nodules are described as follows: NODES: No lymphadenopathy is seen in the tissue surrounding the thyroid gland. US/US thyroid IMPRESSION: ACR TI-RADS category: 0 ACR TI-RADS RECOMMENDATION REFERENCE: Ultrasound-guided fine-needle aspiration, followup ultrasound, no further follow up. * TR1 (0 point) and TR2 (2 points): No FNA or follow up. * TR3 (3 points): FNA if more than or equal to 2.5 cm in maximum dimension, followup ultrasound in 1, 3 and 5 years if 1.5 to 2.4 cm in maximum dimension. * TR4 (4-6 points): FNA if more than or equal to 1.5 cm in maximum dimension, followup ultrasound in 1, 2, 3 and 5 years if 1 to 1.4 cm in maximum dimension. * TR5 (more than or equal to 7 points): FNA if more than or equal to 1 cm in maximum dimension, followup ultrasound every year for 5 years if 0.5 to 0.9 cm in maximum dimension. * TR3, TR4 or TR5 nodules that are below the size threshold for followup receive no follow up. Electronically signed by: Jose Antonio Engel MD 03/23/2025 03:51 PM EDT
== END 2025-03-23 15:09 | disposition home or self-care (01) ==
LOC: HO.US 15:08
PROVIDERS: PCP Family Medicine; Visit Provider Family Medicine
DX: E01.0 Iodine-deficiency related diffuse (endemic) goiter (principal)
CPT/HCPCS: 76536

== ENCOUNTER → 2025-03-23 15:10 | Outpatient (BNV) | payer OTHER, SELFPAY | PROVIDERS: PCP Family Medicine; Visit Provider Radiology Diagnostic Radiology | DX: E01.0 Iodine-deficiency related diffuse (endemic) goiter (principal) | CPT/HCPCS: 76536 ==

== ENCOUNTER 2025-03-31 09:05 | Outpatient (AMB) | payer OTHER, SELFPAY ==
--- NOTE | 2025-03-31 09:12 | AM.OFFVISNUR ---
Intake Visit Reasons: HP Breath Test. STOP PPI, + NPO. Intake Note: Patient presents for collection of?H Pylori?breath test. Patient has been fasting for 1 hour (nothing to eat, drink, no chewing gum or smoking) has not taken any antacid medication for at least 2 weeks and has no allergies to artificial sweeteners.?? Allergies No Known Allergies Allergy (Verified 03/16/25 13:27) Assessment & Plan Assessment & Plan (1) GERD (gastroesophageal reflux disease): Code(s): K21.9 - Gastro-esophageal reflux disease without esophagitis Category: Medical Qualifiers: Esophagitis presence: esophagitis presence not specified Qualified Code(s): K21.9 - Gastro-esophageal reflux disease without esophagitis (2) Abdominal pain: Code(s): R10.9 - Unspecified abdominal pain Category: Medical Qualifiers: Abdominal location: epigastric Qualified Code(s): R10.13 - Epigastric pain Plan Patient presents for collection of?H Pylori?breath test. Patient has been fasting for 1 hour (nothing to eat, drink, no chewing gum or smoking) has not taken any antacid medication for at least 2 weeks and has no allergies to artificial sweeteners.???This test checks for an overgrowth of bacteria in your stomach. We all have bacteria but some may have more than others. It is treatable. if the test comes back negative there is nothing else to do. If the test result is positive we will treat you with 2 antibiotics and a medication to decrease the acid in your stomach (PPI) for 2 weeks. Two weeks after you have completed the treatment we will retest you to make sure the overgrowth has resolved. Patient Instructions: Process for specimen collection and reason for testing was explained to the patient. Specimen collection. Patient instructed to take a deep breath and then exhale into the blue bag, filling it up as much as possible. Patient instructed to drink a mixture of water and the artificial sweetener with a straw. A 15 minute wait period was observed. Patient instructed to take a deep breath and then exhale into the pink bag, filling it up as much as possible.?? Coding Level of Care Code Established Pt Est Pt Level 1 (99990) Patient Type Established Medical Decision Making Straight Forward Diagnoses Gastroesophageal reflux disease, unspecified whether esophagitis present K21.9 Esophagitis presence: esophagitis presence not specified Epigastric pain R10.13 Abdominal location: epigastric
== END 2025-03-31 09:33 | disposition home or self-care (01) ==
LOC: HO.HGI 09:06
PROVIDERS: PCP Family Medicine; Visit Provider Nurse Practitioner Family
DX: K21.9 Gastro-esophageal reflux disease without esophagitis (principal); R10.13 Epigastric pain

== ENCOUNTER 2025-03-31 09:05 | Outpatient (REF) | payer OTHER, SELFPAY | END 2025-03-31 09:06 | disposition home or self-care (01) | LOC: HO.LNP 09:05 | PROVIDERS: PCP Family Medicine; Visit Provider Nurse Practitioner Family | DX: K21.9 Gastro-esophageal reflux disease without esophagitis (principal) | CPT/HCPCS: 83013; 99211 ==

== ENCOUNTER 2025-04-19 15:30 | Outpatient (AMB) | payer OTHER, SELFPAY ==
--- NOTE | 2025-04-19 15:37 | MHC.PC.OV ---
Vital Signs 04/19/25 15:40 Height 5 ft 2 in Weight 148 lb BMI 27.1 BP 128/80 Blood Pressure Location Rt brachial Position Sitting Respiration 14 Pulse 63 Pulse Source Pulse Oximeter Temp 97.5 F Temp Source Temporal Artery Scan Pulse Oximetry (%) 97 Oxygen Delivery Method Room Air Intake Visit Reasons: f/u hypothyroidism, lipids Intake Note: Alisha presents in the office today to follow up on her hypothyroidism and lipids. Allergies No Known Allergies Allergy (Verified 04/19/25 15:39) Tobacco use date assessed: 04/19/25 Dental Screening Dental Screen Date: 04/19/25 Did you have a dental visit in the last 12 months?: No Did you have a dental problem in the last 6 months where you did not have access to dental care?: No Was dental information given to patient?: Patient declined HPI f/u hypothyroidism, lipids HPI Details 49 y/o female presents to f/u hypothyroidism, labs. Last labs drawn 02/05/25. Reviewed labs with pt. TSH 24.33 uIU/mL. Free T4 0.46 ng/dL. Total 3 31 ng/dL. Had sent pt levothyroxine and pt notes she is tolerating this well. HPI Comments History of Present Illness Details Documentation assistance for Josias Singleton MD, was provided by Oliver Whatley,? [employer] on 04/19/2025 at 4:40 PM EST. I, Dr. Singleotn, have read, observed, and verified documentation. ?? 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 Current occupational exposures/hazards: Yes Cognitive needs: No Hearing needs: No Vision needs: No Questionnaire Thrive Questionnaire Date Thrive assessed: 10/21/24 I am a: Patient What is your living situation today?: I have a steady place to live Within the past 12 months, did the food you bought not last and you didn't have the money to get more?: Sometimes True Within the past 12 months, did you worry whether your food would run out before you got money to buy more?: Sometimes True Do you have trouble paying for medicines?: No Do you have trouble getting transportation to medical appointments?: No Do you have trouble paying your heating and electricity bill?: No Do you have trouble taking care of your child, family member or friend?: No Do you have trouble with day-to-day activities such as bathing, preparing meals, shopping, managing finances, etc.?: No Are you currently unemployed and looking for a job?: No Are you interested in more education?: No Please select the resources that you would like help with: Food Currently or been in a relationship where the following occur: No concerns reported THRIVE Score: 2 JANETH-7 AMB Questionnaire JANETH-7 Date JANETH - 7 assessed: 02/10/25 Source: Developed by Drs. Yasir Edwards, Jammie Gao, Zay Chong and colleagues, with an educational brandon from [employer]. Review of Systems Const Denies chills, Denies fatigue, Denies fever(s), Denies headache(s) and Denies weakness ENT Denies dizziness and Denies headache(s) Card Denies dyspnea Resp Denies cough, Denies dyspnea, Denies wheezing and Denies other (shortness of breath) Musc Denies numbness and Denies tingling Neuro Denies dizziness, Denies headache(s), Denies numbness, Denies tingling and Denies weakness Psych Denies anxiety and Denies depression Endo Denies fatigue Aller/Immun Denies wheezing Physical exam (Primary Care) Vital Signs: Last Vital Signs Temp 97.5 F 04/19/25 15:40 Pulse 63 04/19/25 15:40 Resp 14 04/19/25 15:40 BP 128/80 04/19/25 15:40 Pulse Ox 97 04/19/25 15:40 Oxygen Delivery Method Room Air 04/19/25 15:40 BMI result Body Mass Index 27.1 Tobacco/Smoking Status: Tobacco use Status Tobacco use date assessed 04/19/25 04/19/25 15:43 Patient Tobacco Use Status Never used Tobacco 04/19/25 15:43 e-Cigarette/Vaping Use Never Used 04/19/25 15:43 Thrive Assessment: Date of Thrive Assessment Date Thrive assessed 10/21/24 04/19/25 15:43 Currently or been in a relationship where the following occur: No concerns reported Const General: well developed; No acute distress Nutritional Appearance: well nourished Orientation/consciousness: patient oriented x3 HENMT Head: Yes normocephalic and Yes atraumatic Eyes General: appearance normal, both eyes and all related structures Pupils: Equal, round and reactive pupils present EOM: EOMs intact bilaterally Resp Effort & Inspection: normal respiratory effort Neuro General: patient oriented x3 and gait normal Cranial nerves: Yes Equal, round and reactive pupils present Psych Affect: normal affect Coding Level of Care Code Est Pt Level 3 (39182) Diagnoses Hypothyroidism E03.9 Assessment & Plan Assessment & Plan (1) Hypothyroidism: Code(s): E03.9 - Hypothyroidism, unspecified Category: Medical Plan: Patient with history of hypothyroidism, on levothyroxine and TSH was significantly elevated at last check. Had increased levothyroxine and ordered repeat thyroid hormone levels. Patient has not gotten drawn yet. She also seem to have a a diffusely enlarged gland however ultrasound showed normal-sized gland with normal echotexture though it did note increased vascularity - possible autoimmune inflammation and may be Janie Thyroiditis. She will get repeat labs drawn and TPO & aThyroglobulin are included. Will f/u by telemed. May refer to Endocrine. Orders: Orders Free T4 (Free Thyroxine) Today E03.9 - Hypothyroidism, unspecified Thyroid Peroxidase Antibodies Today E01.0 - Iodine-deficiency related diffuse (endemic) goiter, E03.9 - Hypothyroidism, unspecified Thyroglobulin Antibodies Today E01.0 - Iodine-deficiency related diffuse (endemic) goiter, E03.9 - Hypothyroidism, unspecified Complete Blood Count Auto Diff Today Z00.00 - Encounter for general adult medical examination without abnormal findings Comprehensive [place]. Panel Fast Today Z00.00 - Encounter for general adult medical examination without abnormal findings Thyroid Stimulating Hormone Today E03.9 - Hypothyroidism, unspecified Triiodothyronine T3 Total Today E03.9 - Hypothyroidism, unspecified
[2025-04-19 15:40] VITALS: BP 128/80; PULSE 63; RESP 14; TEMP 36.4; O2SAT 97; BMI 27.1
== END 2025-04-19 16:44 | disposition home or self-care (01) ==
LOC: HO.HMCFM 15:30
PROVIDERS: PCP Family Medicine; Visit Provider Family Medicine
DX: E03.9 Hypothyroidism, unspecified (principal)

== ENCOUNTER → 2025-04-19 15:30 | Outpatient (BNVA) | payer OTHER, SELFPAY | PROVIDERS: PCP Family Medicine; Visit Provider Family Medicine | DX: E01.0 Iodine-deficiency related diffuse (endemic) goiter (principal) | CPT/HCPCS: 99212 ==

== ENCOUNTER 2025-04-20 08:01 | Outpatient (REF) | payer OTHER, SELFPAY ==
[2025-04-20 11:50] LABS: MANUAL DIFF FLAG NO
[2025-04-20 12:10] LABS: Hematocrit 36.6 % (37.0-47.0); Hemoglobin 11.4 g/dl (12.0-16.0); Imm Gran Abs Auto 0.02 X10*3/uL (0.00-0.03); Imm Gran Pct Auto 0.4 % (0.0-0.4); Lymphocytes Absolute Auto 1.0 X10*3/uL (1.2-4.9); Mean Corpuscular HGB Conc 31.1 g/dl (31.0-35.0); Mean Corpuscular Hemoglobin 26.5 pg (27.0-33.0); Mean Corpuscular Volume 84.9 fL (80.0-98.0); NRBC Abs Auto 0.000 X10*3/uL (0.0-0.012); NRBC Pct Auto 0.0 /100WBC (0.0-0.2); Platelet Count 225 X10*3/uL (160-400); Red Blood Count 4.31 X10*6/uL (4.20-5.50); White Blood Count 5.3 X10*3/uL (4.8-10.8)
[2025-04-20 12:47] LABS: Free T4 (Free Thyroxine) 0.58 ng/dL (0.71-1.85); Thyroid Stimulating Hormone 18.28 uIU/mL (0.32-4.0)
[2025-04-20 12:53] LABS: Anion Gap 12 (12-20)
[2025-04-20 12:56] LABS: Folate 10.4 ng/mL (> or = 4.0); Vitamin B12 843 pg/mL (200-900)
[2025-04-20 12:57] LABS: Alanine Aminotransferase 25 U/L (0-31); Albumin Level 4.6 g/dL (3.5-5.0); Alkaline Phosphatase 55 U/L (39-117); Aspartate Amino Transferase 33 U/L (5-31); Blood Urea Nitrogen 20 mg/dL (9-16); Calcium 9.4 mg/dL (8.4-10.2); Carbon Dioxide 29 mmol/L (22-29); Chloride 104 mmol/L (96-108); Cholesterol 200 mg/dL (<200); Estimated Glomerular Filt Rate 48; HDL Cholesterol 64 mg/dL (>40); Lipase 15 U/L (8-78); Potassium 4.0 mmol/L (3.3-5.1); Sodium 141 mmol/L (135-145); Total Protein 8.1 g/dL (6.5-8.0); Triglycerides 64 mg/dL (<150)
[2025-04-21 18:49] LABS: Thyroglobulin Antibodies <1 IU/mL (< or = 1)
[2025-04-25 17:09] LABS: Vitamin D 25-OH, D2 <4 ng/mL; Vitamin D 25-OH, D3 18 ng/mL; Vitamin D 25-OH, Total 18 ng/mL (30-100)
== END 2025-04-20 08:02 | disposition home or self-care (01) ==
LOC: HO.WFDLDS 08:01
PROVIDERS: Referring Provider Nurse Practitioner Family; Visit Provider Family Medicine
DX: Z00.00 Encounter for general adult medical examination without abnormal findings (principal); R74.01 Elevation of levels of liver transaminase levels; E78.00 Pure hypercholesterolemia, unspecified; E01.0 Iodine-deficiency related diffuse (endemic) goiter; D64.9 Anemia, unspecified; R10.9 Unspecified abdominal pain; R19.7 Diarrhea, unspecified; E55.9 Vitamin D deficiency, unspecified
CPT/HCPCS: 36415; 80053; 80061; 82306; 82607; 82746; 83690; 84439; 84443; 84480; 85025; 86364; 86376; 86800

== ENCOUNTER 2025-04-26 07:55 | Outpatient (REF) | payer OTHER, SELFPAY ==
--- NOTE | ~2025-04-26 | FL_ITS ---
EXAMINATION: XR FLUOROSCOPY UPPER GI SERIES CLINICAL INFORMATION: Reflux symptoms, epigastric pain before and after eating. 49-year-old female. COMPARISON: None TECHNIQUE: Fluoroscopic air contrast upper GI examination was performed utilizing standard techniques with thin and thick barium and effervescent granules. Numerous spot images were obtained. Several fluoroscopic image hold cine sequences were also obtained. FINDINGS: UPPER GI SERIES: Lateral cine images of the oropharynx and hypopharynx demonstrate normal swallow mechanism with normal epiglottic inversion and soft palate elevation. No laryngeal penetration, glottic or subglottic aspiration identified. No nasopharyngeal reflux present. Hypopharyngeal structures appear normal without evidence of mass or diverticulum. There was no significant cricopharyngeal achalasia. Dual and single contrast images of the esophagus demonstrate normal caliber, contour, and mucosal pattern. No evidence of stricture, mass, or ulcerations identified. Esophageal peristalsis was minimally disordered. No evidence of hiatus hernia identified. No significant gastroesophageal reflux was seen during the course of the examination. Dual contrast and single contrast images of the stomach demonstrated normal contour and mucosal pattern without evidence of mass or gross ulceration. Mild thickening of the gastric rugal folds present. Contrast freely passed into the gastric antrum and duodenal bulb without delay. Single and air-contrast images of the duodenal bulb demonstrate no abnormality. The duodenal sweep has a normal appearance, course, and mucosal fold appearance. FLUOROSCOPY TIME: 2 minutes, 34 seconds Number of Spot Images:12 Number of cines obtained: 9 DOSE AREA PRODUCT: [id number] uGy-m2 (microgray-meter squared) FL/FL upper GI w air w Ba Swallow IMPRESSION: 1. Minimally disordered esophageal peristalsis. Esophagus and GE junction otherwise normal. 2. No definite hiatus hernia. No gastroesophageal reflux identified during the course of the exam. 3. Mild prominence of the gastric rugal folds, suggesting possible underlying gastritis. Electronically signed by: Mando Pires MD 04/26/2025 08:56 AM EDT
== END 2025-04-26 07:56 | disposition home or self-care (01) ==
LOC: HO.XRAY 07:55
PROVIDERS: PCP Family Medicine; Visit Provider Nurse Practitioner Family
DX: K21.9 Gastro-esophageal reflux disease without esophagitis (principal)
CPT/HCPCS: 74246

== ENCOUNTER → 2025-04-26 07:56 | Outpatient (BNV) | payer OTHER, SELFPAY | PROVIDERS: PCP Family Medicine; Visit Provider Radiology Diagnostic Radiology | DX: K21.9 Gastro-esophageal reflux disease without esophagitis (principal) | CPT/HCPCS: 74246 ==

== ENCOUNTER 2025-04-28 08:49 | Outpatient (AMB) | payer OTHER, SELFPAY ==
--- NOTE | 2025-04-28 08:46 | MHC.PC.OV ---
Intake Visit Reasons: f/u hypothyroidism, labs via telemed Intake Note: patient here for Telehealth follow up on hypothyroidism, and labs [employer] Helper Required: No Is last menstrual period known: No Post menopausal: No Patient : No Allergies No Known Allergies Allergy (Verified 04/28/25 08:46) Medication List - Last Reconciled 04/28/25 by Josias Singleton MD atorvastatin 40 mg PO BEDTIME 90 days betamethasone dipropionate 0.05% 1 appl topical BID PRN 14 days bismuth subsalicylate 2 tabs PO QID 14 days cetirizine (Zyrtec) 10 mg PO DAILY PRN cholecalciferol (vitamin D3) 50 mcg PO DAILY doxycycline hyclate 100 mg PO BID 14 days famotidine 20 mg PO BID levothyroxine 50 mcg PO DAILY 90 days metronidazole 1,000 mg (2 x 500 mg) PO BID pantoprazole 40 mg PO DAILY Tobacco use date assessed: 04/28/25 Dental Screening Dental Screen Date: 04/28/25 Did you have a dental visit in the last 12 months?: No Did you have a dental problem in the last 6 months where you did not have access to dental care?: No Was dental information given to patient?: No HPI f/u hypothyroidism, labs via telemed HPI Details 49 y/o female presents to f/u hypothyroidism via telemedicine. Labs drawn 04/20/25. Reviewed labs with pt. Ongoing mild anemia. Elevated AST of 33. Triglycerides 64. TC 200. LDL improved from 156 to 124. HDL 53. Vitamin D low at 18. TSH 18.28 uIU/L. Free T4 0.58 ng/dL. Total T3 41 ng/dL. 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 Current occupational exposures/hazards: Yes Cognitive needs: No Hearing needs: No Vision needs: No Questionnaire Thrive Questionnaire Date Thrive assessed: 10/21/24 I am a: Patient What is your living situation today?: I have a steady place to live Within the past 12 months, did the food you bought not last and you didn't have the money to get more?: Sometimes True Within the past 12 months, did you worry whether your food would run out before you got money to buy more?: Sometimes True Do you have trouble paying for medicines?: No Do you have trouble getting transportation to medical appointments?: No Do you have trouble paying your heating and electricity bill?: No Do you have trouble taking care of your child, family member or friend?: No Do you have trouble with day-to-day activities such as bathing, preparing meals, shopping, managing finances, etc.?: No Are you currently unemployed and looking for a job?: No Are you interested in more education?: No Please select the resources that you would like help with: Food Currently or been in a relationship where the following occur: No concerns reported THRIVE Score: 2 JANETH-7 AMB Questionnaire JANETH-7 Date JANETH - 7 assessed: 02/10/25 Source: Developed by Drs. Yasir Edwards, Jammie Gao, Zay Chong and colleagues, with an educational brandon from [employer]. Review of Systems Const Denies chills, Denies fatigue, Denies fever(s), Denies headache(s) and Denies weakness ENT Denies dizziness and Denies headache(s) Card Denies dyspnea Resp Denies cough, Denies dyspnea, Denies wheezing and Denies other (shortness of breath) Musc Denies numbness and Denies tingling Neuro Denies dizziness, Denies headache(s), Denies numbness, Denies tingling and Denies weakness Psych Denies anxiety and Denies depression Endo Denies fatigue Aller/Immun Denies wheezing Physical exam (Primary Care) Tobacco/Smoking Status: Tobacco use Status Tobacco use date assessed 04/28/25 04/28/25 08:48 Patient Tobacco Use Status Never used Tobacco 04/28/25 08:48 e-Cigarette/Vaping Use Never Used 04/28/25 08:48 Thrive Assessment: Date of Thrive Assessment Date Thrive assessed 10/21/24 04/28/25 08:48 Currently or been in a relationship where the following occur: No concerns reported Telehealth Telehealth Telehealth Platform: Telephone Location of provider rendering services: practice address Location of patient: address on file Patient Identification confirmed using: Name, : Yes Telehealth method: voice only Patient verbally consented to treatment: Yes Patient verbally consented to billing insurance company: Yes Patient informed of any privacy concerns related to visit: Yes Coding Level of Care Code Tele Est Pt Level 2 (79403) Diagnoses Hypothyroidism E03.9 Elevated LDL cholesterol level E78.00 Elevated AST (SGOT) R74.01 Assessment & Plan Assessment & Plan (1) Hypothyroidism: Code(s): E03.9 - Hypothyroidism, unspecified Category: Medical Plan: TSH has decreased somewhat after increasing levothyroxine from 25 mcg daily to 37.5 mcg daily. Increasing levothyroxine to 50 mcg daily Will recheck in about 6 weeks (2) Elevated LDL cholesterol level: Code(s): E78.00 - Pure hypercholesterolemia, unspecified Category: Medical Plan: LDL cholesterol has improved but still above goal of less than 100 Increasing atorvastatin from 20 mg daily to 40 mg daily Will recheck with next blood draw (3) Elevated AST (SGOT): Code(s): R74.01 - Elevation of levels of liver transaminase levels Category: Medical Plan: Very slight elevation in AST Will recheck with next blood draw Orders: Orders Free T4 (Free Thyroxine) Today E03.9 - Hypothyroidism, unspecified Comprehensive [place]. Panel Fast Today E78.00 - Pure hypercholesterolemia, unspecified, Z00.00 - Encounter for general adult medical examination without abnormal findings Thyroid Stimulating Hormone Today E03.9 - Hypothyroidism, unspecified Triiodothyronine T3 Total Today E03.9 - Hypothyroidism, unspecified Lipid Panel Today E78.00 - Pure hypercholesterolemia, unspecified, Z00.00 - Encounter for general adult medical examination without abnormal findings Medications: Changed From levothyroxine (Levoxyl) 37.5 mcg (1.5 x 25 mcg) PO DAILY 90 days 135 tabs 3RF To levothyroxine 50 mcg PO DAILY 90 tabs 3RF 90 days From atorvastatin (Lipitor) 20 mg PO BEDTIME 90 days 90 tabs 2RF To atorvastatin 40 mg PO BEDTIME 90 tabs 2RF 90 days
== END 2025-04-28 15:46 | disposition home or self-care (01) ==
LOC: HO.HMCFM 08:49
PROVIDERS: PCP Family Medicine; Visit Provider Family Medicine
DX: E03.9 Hypothyroidism, unspecified (principal); E78.00 Pure hypercholesterolemia, unspecified; R74.01 Elevation of levels of liver transaminase levels

== ENCOUNTER 2025-05-02 12:08 | Outpatient (AMB) | payer OTHER, SELFPAY ==
--- NOTE | 2025-05-02 12:24 | MHC.OFFVIS ---
Vital Signs 05/02/25 12:25 Height 5 ft 2 in Weight 148 lb 12.992 oz BMI 27.2 BP 112/78 Blood Pressure Location Lt brachial Position Sitting Pulse 64 Pulse Source Pulse Oximeter Pulse Oximetry (%) 97 Oxygen Delivery Method Room Air Intake Visit Reasons: Hypothyroidism (Adult) Intake Note: Patient present today for Hypothyroidism (Adult) office visit. Accounts Payable Associate Required: No Accompanied by: Self / Same As Patient Allergies No Known Allergies Allergy (Verified 05/02/25 12:30) Medication List - Last Reconciled 05/02/25 by Diane Aguila MD atorvastatin 40 mg PO BEDTIME 90 days betamethasone dipropionate 0.05% 1 appl topical BID PRN 14 days bismuth subsalicylate 2 tabs PO QID 14 days cetirizine (Zyrtec) 10 mg PO DAILY PRN cholecalciferol (vitamin D3) 50 mcg PO DAILY doxycycline hyclate 100 mg PO BID 14 days famotidine 20 mg PO BID levothyroxine 50 mcg PO DAILY 90 days metronidazole 1,000 mg (2 x 500 mg) PO BID pantoprazole 40 mg PO DAILY HPI Comments Details: 49-year-old female coming in today for initial evaluation of hypothyroidism. Started on levothyroxine in 2022. Was seeing endo previously in [facility] at the time of diagnosis. Was on 25 mcg of levothyroxine 2 years or so. She has persistently elevated TSH with low free T4 levels since September 2024. Most recently blood work done 04/20/2025 showed elevated TSH of 18.28, low free T4 of 0.58, low total T3 41. Elevated TPO antibody of 79. Was prescribed 50 mcg daily on 04/28/25 , hasnt picked it up yet Takes the 37.5 mcg sometimes monring sometimes afternoon Misses a pill or two almost every week Patient currently denies heat or cold intolerance, diarrhea or constipation, hair loss, palpitation, anxiety, weight changes, mood changes, low energy, changes in appearance of eyes or vision changes, tremors, increased diaphoresis or dry skin. ? Patient denies any difficulty swallowing, pain on swallowing or voice changes or difficulty breathing. Patient denies any history of childhood neck radiation. Denies having ever used lithium, amiodarone or biotin supplements. Patient denies any family history of thyroid cancer or thyroid disease. Physical exam General: sitting comfortably in no acute distress HEENT: normocephalic/atraumatic, Neck: supple, Cardiac: normal heart sounds Pulm: normal breath sounds B/L, no added breath sounds Abd: not distended, no tenderness Extremities: no edema, no signs of myxedema Laboratory Tests 10/22/24 11/23/24 02/05/25 08:14 07:44 07:37 TSH 19.54 H 18.41 H 24.33 H Free T4 0.47 L 0.87 0.46 L Total T3 50 L 63 L 31 L Tiss Transglutamin IgA Thyroglobulin Antibody Thyroid Peroxidase Ab 04/20/25 08:04 TSH 18.28 H Free T4 0.58 L Total T3 41 L Tiss Transglutamin IgA <1.0 Thyroglobulin Antibody <1 Thyroid Peroxidase Ab 79 H US THYROID 03/23/25 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 TECHNIQUE: Linear transducer grayscale and color Doppler examination with attention to the region of the thyroid. FINDINGS: SIZE: Measurements of the thyroid lobes and nodules are given in sagittal, anteroposterior and transverse dimensions respectively. Right Thyroid Lobe: 2.9 x 0.9 x 1.0 cm, volume 1.4 mL. Parenchyma: The gland echotexture is normal. Thyroid vascularity is increased. Left Thyroid Lobe: 2.8 x 0.5 x 0.9 cm, volume 0.7 mL. Parenchyma: The gland echotexture is normal. Thyroid vascularity is increased. Isthmus: 0.2 cm in maximum AP dimension. Estimated total number of nodules greater than or equal to 1 cm: 0. Commodity Broker nodules are described as follows: NODES: No lymphadenopathy is seen in the tissue surrounding the thyroid gland. US/US thyroid IMPRESSION: ACR TI-RADS category: 0 PFSH Medical History Peptic ulcer Thyroid disease Sinusitis Family History Mother High blood pressure High cholesterol Breast cancer Social History Housing: House Alcohol intake: never Patient Tobacco Use Status: Never used Tobacco e-Cigarette/Vaping Use: Never Used Second Hand Smoke Exposure: No service: No Current occupational status: employed Current occupation: [employer] Current occupational exposures/hazards: Yes Cognitive needs: No Hearing needs: No Vision needs: No Physical Exam Vital Signs: Last Vital Signs Pulse 64 05/02/25 12:25 BP 112/78 05/02/25 12:25 Pulse Ox 97 05/02/25 12:25 Oxygen Delivery Method Room Air 05/02/25 12:25 BMI result Body Mass Index 27.2 Assessment & Plan Assessment & Plan (1) Hypothyroidism: Code(s): E03.9 - Hypothyroidism, unspecified Category: Medical Qualifiers: 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 She has not been taking the medication appropriately and there is also some issues with the adherence. I explained to her importance of taking the medication 1st thing in the morning on an empty stomach and waiting at least 40 minutes to an hour before breakfast, coffee or tea. She has also been taking it with pantoprazole that can affect the absorption of the medication. We discussed the pantoprazole by at least 4 hours from levothyroxine. Some days she is also missing the medication and says she Tre about a pill or 2 a week. I did tell her that she could double up the dose the next day if she misses it 1 day but discussed importance of adherence. At this time I agree with levothyroxine 50 mcg daily. Her PCP already sent a prescription to her 4 days ago. We will have her repeat labs in 6 weeks. Plan: -start levothyroxine 50 mcg daily -ordered TSH, free T4 to be done in 6 weeks which would be around mid May 2025 -follow up in 4 months Plan I spent 45 minutes in reviewing the record, seeing the patient and documenting in the medical record. Orders: Orders Free T4 (Free Thyroxine) 6 Weeks E03.9 - Hypothyroidism, unspecified Thyroid Stimulating Hormone 6 Weeks E03.9 - Hypothyroidism, unspecified Patient Instructions: Start levothyroxine 50 mcg daily, please take this 1st thing in the morning on an empty stomach with water and wait at least 40 minutes before you eat breakfast or coffee or tea. Please do not take this medication with the any other medications. If you miss a pill on 1 day, you can take 2 the next day. Please separate your pantoprazole from this medication as well, take it at least 4 hours apart, you can change the timing of your pantoprazole to mid day or at night. Do blood work in 6 weeks which would be mid May 2025. If you do not hear from anyone within a week after doing the blood work, please call the office during office hours to check on your results. 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
[2025-05-02 12:25] VITALS: BP 112/78; PULSE 64; O2SAT 97; BMI 27.2
== END 2025-05-02 13:02 | disposition home or self-care (01) ==
LOC: HO.ENCR 12:08
PROVIDERS: PCP Family Medicine; Visit Provider Student in an Organized Health Care Education/Training Program
DX: E06.3 Autoimmune thyroiditis (principal)
CPT/HCPCS: 99204

== ENCOUNTER → 2025-05-02 12:08 | Outpatient (BNVA) | payer OTHER, SELFPAY | PROVIDERS: PCP Family Medicine; Visit Provider Student in an Organized Health Care Education/Training Program | DX: E06.3 Autoimmune thyroiditis (principal) | CPT/HCPCS: 99202 ==

== ENCOUNTER 2025-05-27 08:10 | Outpatient (AMB) | payer OTHER, SELFPAY ==
--- NOTE | 2025-05-27 08:44 | MHC.OFFVIS ---
Vital Signs 05/27/25 08:49 Height 5 ft 2 in Weight 146 lb BMI 26.7 BP 144/88 H Blood Pressure Location Rt brachial Position Sitting Pulse 68 Pulse Source Pulse Oximeter Pulse Oximetry (%) 99 Oxygen Delivery Method Room Air Intake Visit Reasons: 2 mos FUV. Discuss colo/egd. Intake Note: Est pt for GERD + abd pain mgmt. Review colo/egd. S/P HP Tx. CC; Pt denies any new GI concerns or sx at this time. Pt confirms that she finished her abx and she has been feeling much better. Still taking PPI. Horticultural Services Supervisor Required: No Accompanied by: Self / Same As Patient Allergies No Known Allergies Allergy (Verified 05/02/25 12:30) Medication List - Last Reconciled 05/27/25 by JESUS Cruz atorvastatin 40 mg PO BEDTIME 90 days betamethasone dipropionate 0.05% 1 appl topical BID PRN 14 days cetirizine (Zyrtec) 10 mg PO DAILY PRN cholecalciferol (vitamin D3) 50 mcg PO DAILY levothyroxine 50 mcg PO DAILY 90 days pantoprazole 40 mg PO DAILY HPI HPI 2 mos FUV. Discuss colo/egd.: Details: LAST VISIT: GERD (gastroesophageal reflux disease) Screening for colon cancer Abdominal pain Postprandial epigastric pain Plan Patient will return in 2 weeks for H pylori breath test. Patient will stop taking omeprazole and start famotidine. Patient will stop famotidine 24-48 hours before testing. Patient will be treated empirically if positive. Will check lipase, vitamin B12, folate, vitamin-D, transglutaminase. Patient will be sent for upper GI with barium swallow. Discussed with patient avoiding dietary triggers in late night snacking. Staying upright for minimum 3 hours after meals discussed with patient. Patient reports abdominal bloating. Patient will follow FODMAP diet. List of food recommended as well as list of food to avoid given to patient. Patient will return in our office in 2 months to discuss going for upper endoscopy and colonoscopy. Patient is agreeable to current plan of care and verbalizes understanding of instructions. She was given the opportunity to ask questions and all questions answered. ? Thank you for allowing me to participate in her care Orders H Pylori Breath Test Today K21.9 Lipase Today R10.9 Vitamin B12 and Folate Today R19.7 Vitamin D 25-OH (D2 and D3) Today E55.9 FL upper GI w Ba Swallow Today K21.9 Transglutaminase IgA Today R10.9 New famotidine (Pepcid) 20 mg PO BID 30 tabs 0RF K29.70 pantoprazole take one tablet half an hour before breakfast 40 mg PO DAILY 30 tabs 3RF K21.9 Discontinued omeprazole Discontinued Reason: Doctor's Order 20 mg PO DAILY 30 days 30 caps 2RF TODAY'S VISIT Patient is here today for follow-up and to discuss going for endoscopy and colonoscopy. Patient was diagnosed with H pylori breath test and treated with quadruple therapy. Patient reports that she finish all of her antibiotics. Currently patient reports that she is feeling much better. Occasional postprandial abdominal bloating otherwise is feeling well. Upper GI series with barium swallow did not show reflux, however possible gastritis. Patient denies any issues with anesthesia in the past. No history of sleep apnea. Not on any anticoagulation medication. Denies any cardiac or respiratory symptoms. [facility] Medical History (Updated 05/27/25 @ 14:02 by Brie Torres [facility]) History of Helicobacter pylori infection Peptic ulcer Thyroid disease Sinusitis Family History Mother High blood pressure High cholesterol Breast cancer Social History Housing: House Alcohol intake: never Patient Tobacco Use Status: Never used Tobacco e-Cigarette/Vaping Use: Never Used Second Hand Smoke Exposure: No service: No Current occupational status: employed Current occupation: [employer] Current occupational exposures/hazards: Yes Cognitive needs: No Hearing needs: No Vision needs: No Review of Systems Const Denies weight gain and Denies weight loss ENT Reports no additional complaints, Denies dysphagia and Denies odynophagia Card Reports no additional complaints Resp Reports no additional complaints GI Reports abdominal pain (Epigastric), Denies belching, Denies melena, Reports bloating (Occasional), Denies change in bowel habits, Denies dysphagia, Denies excessive flatus, Reports dyspepsia, Denies heartburn, Denies diarrhea, Denies loose stools, Denies nausea, Denies odynophagia and Denies vomiting Reports no additional complaints Musc Reports no additional complaints Neuro Reports no additional complaints Psych Reports no additional complaints Endo Reports no additional complaints Physical Exam Vital Signs: Last Vital Signs Pulse 68 05/27/25 08:49 BP 144/88 H 05/27/25 08:49 Pulse Ox 99 05/27/25 08:49 Oxygen Delivery Method Room Air 05/27/25 08:49 BMI result Body Mass Index 26.7 Const General: healthy appearing, no acute distress and well developed Nutritional Appearance: well nourished Orientation/consciousness: patient oriented x3 Resp Effort & Inspection: normal respiratory effort, able to speak in complete sentences, no tracheal deviation and symmetric chest movement Auscultation: clear to auscultation bilaterally Cardio Rate: regular rate GI Inspection: Yes normal to inspection and No distended Palpation (GI): Soft to palpation, not firm, nontender and No hepatosplenomegaly present Auscultation: normal bowel sounds General: Yes no CVA tenderness Back/Spine/Pelvis Back: no CVA tenderness Skin General skin exam: elasticity normal, turgor normal and dry skin Neuro General: patient oriented x3 Psych Appearance: grossly normal Mental Status: mental status grossly normal Results Reviewed Results Reviewed: Laboratory Tests 03/31/25 04/20/25 09:33 08:04 Total Bilirubin 0.5 AST 33 H ALT 25 Alkaline Phosphatase 55 Lipase 15 Vitamin B12 843 25-OH Vitamin D Total 18 L Tiss Transglutamin IgA <1.0 Thyroglobulin Antibody <1 H. pylori Breath Test Positive UPPER GI SERIES WITH BARIUM SWALLOW IMPRESSION: 1. Minimally disordered esophageal peristalsis. Esophagus and GE junction otherwise normal. 2. No definite hiatus hernia. No gastroesophageal reflux identified during the course of the exam. 3. Mild prominence of the gastric rugal folds, suggesting possible underlying gastritis. Assessment & Plan Assessment & Plan (1) GERD (gastroesophageal reflux disease): Code(s): K21.9 - Gastro-esophageal reflux disease without esophagitis Category: Medical Qualifiers: Esophagitis presence: esophagitis presence not specified Qualified Code(s): K21.9 - Gastro-esophageal reflux disease without esophagitis (2) Screening for colon cancer: Code(s): Z12.11 - Encounter for screening for malignant neoplasm of colon Category: Medical (3) Elevated AST (SGOT): Code(s): R74.01 - Elevation of levels of liver transaminase levels Category: Medical (4) History of Helicobacter pylori infection: Code(s): Z86.19 - Personal history of other infectious and parasitic diseases Category: Medical (5) Postprandial epigastric pain: Code(s): R10.13 - Epigastric pain Plan Patient will continue taking pantoprazole daily. Avoid dietary triggers and late night snacking. Staying upright for minimum 3 hours after meals discussed with patient. What to expect before during and after procedure discussed with patient. We will be adding upper endoscopy as patient was diagnosed with reflux, history of H pylori, treated with antibiotics will need to check for eradication. Stressed the importance of good bowel prep and clear liquid diet day before procedure. Patient is agreeable to this plan and verbalizes understanding of instructions. She was given the opportunity to ask questions and all questions answered. Thank you for allowing me to participate in her care Orders: Referrals GI Procedure Notification K21.9 - Gastro-esophageal reflux disease without esophagitis, Z12.11 - Encounter for screening for malignant neoplasm of colon Medications: New bisacodyl (Dulcolax (bisacodyl)) take 4 tabs at noon the day before your colonoscopy 20 mg (4 x 5 mg) PO ONCE 4 tabs 0RF constipation 1 day Z12.11 - Encounter for screening for malignant neoplasm of colon polyethylene glycol 3350 (Miralax) As directed by gastroenterology department at [facility] 238 grams PO ONCE 238 grams 0RF Z12.11 - Encounter for screening for malignant neoplasm of colon Coding Level of Care Code Est Pt Level 4 (69879) Complex EM visit Add On G2211 Diagnoses Gastroesophageal reflux disease, unspecified whether esophagitis present K21.9 Esophagitis presence: esophagitis presence not specified Screening for colon cancer Z12.11 Elevated AST (SGOT) R74.01 History of Helicobacter pylori infection Z86.19 Postprandial epigastric pain R10.13 Time Spent (min) 40 Comment 25 minutes spent with patient and additional 15 minutes spent reviewing her records
[2025-05-27 08:49] VITALS: BP 144/88; PULSE 68; O2SAT 99; BMI 26.7
== END 2025-05-27 09:20 | disposition home or self-care (01) ==
LOC: HO.HGI 08:11
PROVIDERS: PCP Family Medicine; Visit Provider Nurse Practitioner Family
DX: Z01.818 Encounter for other preprocedural examination (principal); Z12.11 Encounter for screening for malignant neoplasm of colon; K21.9 Gastro-esophageal reflux disease without esophagitis; R74.01 Elevation of levels of liver transaminase levels; R10.13 Epigastric pain; Z86.19 Personal history of other infectious and parasitic diseases
CPT/HCPCS: 99214

== ENCOUNTER → 2025-05-27 08:10 | Outpatient (BNVA) | payer SELFPAY | PROVIDERS: PCP Family Medicine; Visit Provider Nurse Practitioner Family | DX: Z12.11 Encounter for screening for malignant neoplasm of colon (principal); K21.9 Gastro-esophageal reflux disease without esophagitis; R74.01 Elevation of levels of liver transaminase levels; R10.13 Epigastric pain; Z86.19 Personal history of other infectious and parasitic diseases | CPT/HCPCS: 99212 ==

== ENCOUNTER 2025-06-16 10:07 | Outpatient (REF) | payer OTHER, SELFPAY ==
[2025-06-16 12:20] LABS: Alanine Aminotransferase 22 U/L (0-31); Albumin Level 4.6 g/dL (3.5-5.0); Alkaline Phosphatase 63 U/L (39-117); Anion Gap 11 (12-20); Aspartate Amino Transferase 28 U/L (5-31); Blood Urea Nitrogen 14 mg/dL (9-16); Calcium 9.4 mg/dL (8.4-10.2); Carbon Dioxide 30 mmol/L (22-29); Chloride 104 mmol/L (96-108); Cholesterol 135 mg/dL (<200); Estimated Glomerular Filt Rate > 60; HDL Cholesterol 59 mg/dL (>40); Potassium 4.0 mmol/L (3.3-5.1); Sodium 141 mmol/L (135-145); Total Protein 7.9 g/dL (6.5-8.0); Triglycerides 43 mg/dL (<150)
[2025-06-16 12:35] LABS: Thyroid Stimulating Hormone 10.51 uIU/mL (0.32-4.0)
[2025-06-16 12:44] LABS: Free T4 (Free Thyroxine) 0.79 ng/dL (0.71-1.85)
== END 2025-06-16 10:08 | disposition home or self-care (01) ==
LOC: HO.WFDLDS 10:07
PROVIDERS: Referring Provider Student in an Organized Health Care Education/Training Program; Visit Provider Family Medicine
DX: Z00.00 Encounter for general adult medical examination without abnormal findings (principal); E78.00 Pure hypercholesterolemia, unspecified; E03.9 Hypothyroidism, unspecified
CPT/HCPCS: 36415; 80053; 80061; 84439; 84443

== ENCOUNTER 2025-06-20 14:30 | Outpatient (AMB) | payer OTHER, SELFPAY ==
--- NOTE | 2025-06-20 14:31 | A.OFFPC_ITS ---
Vital Signs 06/20/25 14:33 Height 5 ft 2 in Weight 148 lb 6 oz BMI 27.1 BP 124/68 Blood Pressure Location Lt brachial Position Sitting Pulse 67 Pulse Source Pulse Oximeter Temp 97.0 F Temp Source Temporal Artery Scan Pulse Oximetry (%) 99 Oxygen Delivery Method Room Air Intake Visit Reasons: f/u hypothyroidism Allergies No Known Allergies Allergy (Verified 06/20/25 14:35) Tobacco use date assessed: 06/20/25 Dental Screening Dental Screen Date: 06/20/25 Did you have a dental visit in the last 12 months?: No Did you have a dental problem in the last 6 months where you did not have access to dental care?: No Was dental information given to patient?: No HPI f/u hypothyroidism HPI Details 49 y/o female presents to f/u hypothyroi dism. Labs drawn 06/16/25. Reviewed labs with pt. Triglycerides 43. TC 135. LDL 68. HDL 59. TSH improved from 18.28 to 10.51 uIU/mL. Free T4 0.79. She is on levothyroxine 50 mcg daily. 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 1. Little interest or pleasure in doing things: not at all 2. Feeling down, depressed, or hopeless: not at all 3. Trouble falling or staying asleep, or sleeping too much: not at all 4. Feeling tired or having little energy: more than half the days 5. Poor appetite or overeating: not at all 6. Feeling bad about yourself - or that you are a failure or have let yourself or your family down: not at all 7. Trouble concentrating on things, such as reading the newspaper or watching television: several days 8. Moving or speaking so slowly that other people could have noticed. Or the opposite - being so fidgety or restless that you have been moving around a lot more than usual: not at all 9. Thoughts that you would be better off or of hurting yourself in some way: not at all Total score: 3 Depression Screening Interpretation: Negative Depression Screening Done: Yes Source: Developed by Drs. Yasir Edwards, Jammie Gao, Zay Chong and colleagues, with an educational brandon from [employer]. Thrive Questionnaire Date Thrive assessed: 10/21/24 I am a: Patient What is your living situation today?: I have a steady place to live Within the past 12 months, did the food you bought not last and you didn't have the money to get more?: Sometimes True Within the past 12 months, did you worry whether your food would run out before you got money to buy more?: Sometimes True Do you have trouble paying for medicines?: No Do you have trouble getting transportation to medical appointments?: No Do you have trouble paying your heating and electricity bill?: No Do you have trouble taking care of your child, family member or friend?: No Do you have trouble with day-to-day activities such as bathing, preparing meals, shopping, managing finances, etc.?: No Are you currently unemployed and looking for a job?: No Are you interested in more education?: No Please select the resources that you would like help with: Food Currently or been in a relationship where the following occur: No concerns reported THRIVE Score: 2 AUDIT C Alcohol Use Questionnaire (AUDIT-C) 1. How often do you have a drink containing alcohol?: Monthly or less 2. How many drinks containing alcohol do you have on a typical day when you are drinking?: 1 or 2 3. How often do you have six or more drinks on one occasion?: Never Total Score: 1 JANETH-7 AMB Questionnaire JANETH-7 Date JANETH - 7 assessed: 02/10/25 Feeling nervous, anxious, or on edge: 0 = Not at all Not being able to stop or control worryin = Not at all Worrying too much about different things: 0 = Not at all Trouble relaxin = Not at all Being so restless that it is hard to sit still: 0 = Not at all Becoming easily annoyed or irritable: 0 = Not at all Feeling afraid as if something awful might happen: 0 = Not at all Total JANETH-7 score (0-4 normal; 5-9 mild; 10-14 moderate; 15-21 severe): 0 Source: Developed by Drs. Yasir Edwards, Jammie Gao, Zay Chong and colleagues, with an educational brandon from [employer]. Review of Systems Const Denies chills, Denies fatigue, Denies fever(s), Denies headache(s) and Denies weakness ENT Denies dizziness and Denies headache(s) Card Denies dyspnea Resp Denies cough, Denies dyspnea, Denies wheezing and Denies other (shortness of breath) Musc Denies numbness and Denies tingling Neuro Denies dizziness, Denies headache(s), Denies numbness, Denies tingling and Denies weakness Psych Denies anxiety and Denies depression Endo Denies fatigue Aller/Immun Denies wheezing Physical exam (Primary Care) Vital Signs: Last Vital Signs Temp 97.0 F 06/20/25 14:33 Pulse 67 06/20/25 14:33 BP 124/68 06/20/25 14:33 Pulse Ox 99 06/20/25 14:33 Oxygen Delivery Method Room Air 06/20/25 14:33 BMI result Body Mass Index 27.1 Tobacco/Smoking Status: Tobacco use Status Tobacco use date assessed 06/20/25 06/20/25 14:38 Patient Tobacco Use Status Never used Tobacco 06/20/25 14:32 e-Cigarette/Vaping Use Never Used 06/20/25 14:32 PHQ-9: PHQ-9 Score PHQ-9: Total score 3 06/20/25 14:38 Depression Screening Interpretation: Negative Thrive Assessment: Date of Thrive Assessment Date Thrive assessed 10/21/24 06/20/25 14:32 Currently or been in a relationship where the following occur: No concerns reported Const General: well developed; No acute distress Nutritional Appearance: well nourished Orientation/consciousness: patient oriented x3 HENMT Head: Yes normocephalic and Yes atraumatic Eyes General: appearance normal, both eyes and all related structures Pupils: Equal, round and reactive pupils present EOM: EOMs intact bilaterally Resp Effort & Inspection: normal respiratory effort Neuro General: patient oriented x3 and gait normal Cranial nerves: Yes Equal, round and reactive pupils present Psych Affect: normal affect Coding Level of Care Code Est Pt Level 4 (65945) Diagnoses 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 (2) Elevated LDL cholesterol level: Code(s): E78.00 - Pure hypercholesterolemia, unspecified Category: Medical Plan: LDL cholesterol and her entire lipid panel are now in normal range She notes some fatigue with atorvastatin 40 mg daily Will have her take atorvastatin 20 mg daily We can recheck lipids to ensure they remain in the correct range, with next blood draw Orders: Orders Lipid Panel Today E78.00 - Pure hypercholesterolemia, unspecified, Z00.00 - Encounter for general adult medical examination without abnormal findings Triiodothyronine T3 Total Today E03.9 - Hypothyroidism, unspecified, E06.3 - Autoimmune thyroiditis Thyroid Stimulating Hormone Today E03.9 - Hypothyroidism, unspecified, E06.3 - Autoimmune thyroiditis Comprehensive [place]. Panel Fast Today E78.00 - Pure hypercholesterolemia, unspecified, Z00.00 - Encounter for general adult medical examination without abnormal findings Free T4 (Free Thyroxine) Today E03.9 - Hypothyroidism, unspecified, E06.3 - Autoimmune thyroiditis Medications: Changed From levothyroxine 50 mcg PO DAILY 90 days 90 tabs 3RF To levothyroxine 1.5 tabs (75 mcg) M-F and 1 tab (50 mcg) Sa, Scott orally daily; 127 tabs 3RF 90 days From atorvastatin 40 mg PO BEDTIME 90 days 90 tabs 2RF To atorvastatin 20 mg PO BEDTIME 90 tabs 2RF 90 days
[2025-06-20 14:33] VITALS: BP 124/68; PULSE 67; TEMP 36.1; O2SAT 99; BMI 27.1
== END 2025-06-20 14:56 | disposition home or self-care (01) ==
LOC: HO.HMCFM 14:31
PROVIDERS: PCP Family Medicine; Visit Provider Family Medicine
DX: E06.3 Autoimmune thyroiditis (principal); E78.00 Pure hypercholesterolemia, unspecified

== ENCOUNTER → 2025-06-20 14:30 | Outpatient (BNVA) | payer OTHER, SELFPAY | PROVIDERS: PCP Family Medicine; Visit Provider Family Medicine | DX: E06.3 Autoimmune thyroiditis (principal); E03.9 Hypothyroidism, unspecified; E78.00 Pure hypercholesterolemia, unspecified | CPT/HCPCS: 99212 ==